=== PATIENT | male | born 1960 | race Caucasian/White ===

== ENCOUNTER 2017-10-07 06:50 | Emergency (ER) | payer SELFPAY ==
[~2017-10-07 06:50] MED LIST: FAMO20 PO; PRED10PA PO
[2017-10-07 06:57] VITALS: BP 190/97; PULSE 80; RESP 20; TEMP 98.8; O2SAT 88
[2017-10-07] MEDS ORDERED: methylPREDNISolone SOD SUCC 125 MG/2 ML VIAL IV PUSH ONE (07:15)
[2017-10-07] MEDS ORDERED: SODIUM CHLORIDE 0.9% FLUSH 10 ML FLUSH IVF PRN (07:15)
--- NOTE | 2017-10-07 07:18 | PD ---
HPI Chief Complaint: Respiratory Symptoms Time Seen by Provider: 07:08 Travel History International Travel<30 days: No Contact w/Intl Traveler<30days: No Traveled to known affect area: No History of Present Illness HPI This patient complains of shortness of breath. Duration is gradual worsening over one week. Patient has smoked a pack a day for the last 40 years. He complains of runny nose and congestion and cough. He denies fever or chest pain. No alleviating factors. 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 Severity is moderate. Initial room air saturation is 88% PFSH Past Medical History COPD: Yes Diminished Hearing: No Respiratory: Yes Influenza Vaccination: No ?: Not Social History Alcohol Use: Yes (OCCASIONAL) Tobacco Use: Yes (1 PPD) Substance Use: No Allergies-Medications (Allergen,Severity, Reaction): Coded Allergies: diphenhydramine (Unverified Allergy, Severe, 10/07/17) Reported Meds & Prescriptions Reported Meds & Active Scripts Active Ventolin Hfa 18 GM Inh (Albuterol Sulfate) 90 Mcg/Act Aer 2 Puff INH Q4H PRN Prednisone 20 Mg Tab 40 Mg PO DAILY Take 40 mg (2 tablets) daily for 5 days Review of Systems General / Constitutional: No: Fever Eyes: No: Visual changes HENT: Positive: Rhinorrhea, Congestion, No: Headaches Cardiovascular: No: Chest Pain or Discomfort Respiratory: Positive: Cough, Shortness of Breath, Wheezing Gastrointestinal: No: Abdominal Pain Genitourinary: No: Dysuria Musculoskeletal: No: Pain Skin: No Rash Neurologic: No: Weakness Psychiatric: No: Depression Endocrine: No: Polydipsia Hematologic/Lymphatic: No: Easy Bruising Physical Exam Narrative GENERAL: Well-nourished, well-developed patient with shortness of breath . SKIN: Focused skin assessment reveals no rash and nodules. Skin is Warm and dry. HEAD: Atraumatic. Normocephalic. EYES: Pupils equal and round. No scleral icterus. No injection or drainage. ENT: No nasal bleeding or discharge. Mucous membranes pink and moist. NECK: Trachea midline. No JVD. CARDIOVASCULAR: Regular rate and rhythm. No murmur appreciated. RESPIRATORY: No accessory muscle use. Expiratory wheezing with diffuse rhonchi. Breath sounds equal bilaterally. GASTROINTESTINAL: Abdomen soft, non-tender, nondistended. Hepatic and splenic margins not palpable. MUSCULOSKELETAL: No obvious deformities. No clubbing. No cyanosis. No edema. NEUROLOGICAL: Awake and alert. No obvious cranial nerve deficits. Motor grossly within normal limits. Normal speech. PSYCHIATRIC: Appropriate mood and affect; insight and judgment normal. Data Data Last Documented VS Vital Signs Date Time Temp Pulse Resp B/P (MAP) Pulse Ox O2 Delivery O2 Flow Rate FiO2 10/07/17 08:52 70 18 144/94 (111) 95 Nasal Cannula 2.00 10/07/17 06:57 98.8 Orders Orders Complete Blood Count With Diff (10/07/17 07:13) Basic Metabolic Panel (Bmp) (10/07/17 07:13) Influenzae A/B Antigen (10/07/17 07:13) Iv Access Insert/Monitor (10/07/17 07:13) Ecg Monitoring (10/07/17 07:13) Oximetry (10/07/17 07:13) Oxygen Administration (10/07/17 07:13) Chest, Single Ap (10/07/17 07:13) Sodium Chloride 0.9% Flush (Ns Flush) (10/07/17 07:15) Methylprednisolone So Succ Inj (Solumedr (10/07/17 07:15) Albuterol-Ipratropium Neb (Duoneb Neb) (10/07/17 07:15) Labs Laboratory Tests Test 10/07/17 07:20 White Blood Count 6.8 TH/MM3 Red Blood Count 4.73 MIL/MM3 Hemoglobin 15.5 GM/DL Hematocrit 47.0 % Mean Corpuscular Volume 99.4 FL Mean Corpuscular Hemoglobin 32.8 PG Mean Corpuscular Hemoglobin Concent 33.0 % Red Cell Distribution Width 13.3 % Platelet Count 185 TH/MM3 Mean Platelet Volume 7.7 FL Neutrophils (%) (Auto) 62.5 % Lymphocytes (%) (Auto) 27.2 % Monocytes (%) (Auto) 7.1 % Eosinophils (%) (Auto) 2.6 % Basophils (%) (Auto) 0.6 % Neutrophils # (Auto) 4.3 TH/MM3 Lymphocytes # (Auto) 1.8 TH/MM3 Monocytes # (Auto) 0.5 TH/MM3 Eosinophils # (Auto) 0.2 TH/MM3 Basophils # (Auto) 0.0 TH/MM3 CBC Comment DIFF FINAL Differential Comment Blood Urea Nitrogen 5 MG/DL Creatinine 0.70 MG/DL Random Glucose 106 MG/DL Calcium Level 8.2 MG/DL Sodium Level 143 MEQ/L Potassium Level 3.8 MEQ/L Chloride Level 99 MEQ/L Carbon Dioxide Level 32.1 MEQ/L Anion Gap 12 MEQ/L Estimat Glomerular Filtration Rate 117 ML/MIN MDM Medical Decision Making Medical Screen Exam Complete: Yes Emergency Medical Condition: Yes Medical Record Reviewed: Yes Differential Diagnosis Differential diagnosis includes COPD, asthma, pneumonia, bronchitis, CHF Narrative Course I have reviewed the patient's electronic medical record. Patient is here in 2016 with dyspnea. IV placed I gave him a series of 3 nebulizer treatments and oxygen and IV steroids I reviewed his chest x-ray which is normal Extended cardiac monitoring reveals sinus rhythm without significant ectopy Patient is 95% on 2 L, was hypoxic on room air upon arrival CBC is normal Metabolic profile is normal Influenza swab is negative On reevaluation he is clinically much improved. Saturations are excellent on room air at this point I prescribed him an inhaler in 5 days of prednisone Most importantly needs to quit smoking Stable for outpatient follow-up Diagnosis Primary Impression: Bronchitis Additional Impression: COPD with acute exacerbation Additional Instructions: The patient was advised to follow up with their physician and return if they worsen. Quit smoking Med/Other Pt SpecificInfo: Prescription(s) given Scripts Albuterol 18 GM Inh (Ventolin Hfa 18 GM Inh) 90 Mcg/Act Aer 2 PUFF INH Q4H Y for SHORTNESS OF BREATH, #1 INHALER 0 Refills Prov: Jamshid Madera MD 10/07/17 Prednisone (Prednisone) 20 Mg Tab 40 MG PO DAILY, #10 TAB 0 Refills Take 40 mg (2 tablets) daily for 5 days Prov: Jamshid Madera MD 10/07/17 Disposition: 01 DISCHARGE HOME Condition: Stable Jamshid Madera MD Oct 07, 2017 07:18
[2017-10-07 07:24] VITALS: BP 165/90; PULSE 64; RESP 18; O2SAT 93
[2017-10-07] MEDS: RESP: ALBUTEROL 2.5 MG/IPRATROPIUM 0.5 MG NEB (SCH) INH ×2 (07:25→07:27)
[2017-10-07 07:31] LABS: AUTOMATED NEUTROPHIL # 4.3 TH/MM3 (1.8-7.7); BASOPHIL % 0.6 % (0.0-2.0); EOSINOPHIL # 0.2 TH/MM3 (0-0.4); EOSINOPHIL % 2.6 % (0.0-4.0); HEMO FLAGS DIFF FINAL; LYMPH % 27.2 % (9.0-44.0); LYMPHOCYTE # 1.8 TH/MM3 (1.0-4.8); MEAN CELL VOLUME 99.4 FL (80.0-100.0); MEAN CORPUSCULAR HEMOGLOBIN 32.8 PG (27.0-34.0); MONO % 7.1 % (0.0-8.0); NEUT % 62.5 % (16.0-70.0); PLATELET COUNT 185 TH/MM3 (150-450); RED BLOOD COUNT 4.73 MIL/MM3 (4.50-5.90); RED CELL DISTRIBUTION WIDTH 13.3 % (11.6-17.2); WHITE BLOOD COUNT 6.8 TH/MM3 (4.0-11.0)
[2017-10-07 07:42] LABS: POTASSIUM 3.8 MEQ/L (3.5-5.1)
[2017-10-07 08:52] VITALS: BP 144/94; PULSE 70; RESP 18; O2SAT 95
--- NOTE | 2017-10-07 09:03 | RADRPT ---
EXAM DATE/TIME: 10/07/2017 07:23 [facility] COMPARISON: CHEST SINGLE AP, March 09, 2014, 11:57. INDICATIONS : Short of breath, cough, congestion, runny nose. MEDICAL HISTORY : Chronic obstructive pulmonary disease. Smoker. SURGICAL HISTORY : Right knee arthroscopy. ENCOUNTER: Initial ACUITY: 4 - 6 days PAIN SCORE: 0/10 LOCATION: chest FINDINGS: Portable AP view of the chest demonstrates a normal-sized cardiac silhouette. No effusion, consolidat ion, or pneumothorax is visualized. The bones and soft tissues demonstrate no acute abnormality. CONCLUSION: No acute cardiopulmonary abnormality is identified. Woody Lee MD on October 07, 2017 at 9:01 Board Certified Radiologist. This report was verified electronically.
[2017-10-07 09:18] LABS: BICARBONATE 32.1 MEQ/L (21.0-32.0)
[2017-10-07] MEDS ORDERED: VENTAER INH (09:23)
[2017-10-07] MEDS ORDERED: PRED20 PO (09:23)
== END 2017-10-07 09:34 | disposition home or self-care (01) ==
LOC: PHED 06:50
DX: J44.1 Chronic obstructive pulmonary disease with (acute) exacerbation (principal); F17.210 Nicotine dependence, cigarettes, uncomplicated
CPT/HCPCS: 71010; 80048; 85025; 87804; 94640; 94664; 96374; 99284; J2930

== ENCOUNTER 2018-02-28 08:26 | Emergency (ER) | payer SELFPAY ==
[~2018-02-28] VITALS: Ht 167.6 cm; Wt 99.2 kg
[~2018-02-28 08:26] MED LIST changes: -FAMO20 PO; -PRED10PA PO; +PRED20 PO; +VENTAER INH
[2018-02-28 08:32] VITALS: BP 191/100; PULSE 78; RESP 16; TEMP 98.3; O2SAT 92
--- NOTE | 2018-02-28 08:57 | PD ---
HPI Chief Complaint: Edema Time Seen by Provider: 08:50 Travel History International Travel<30 days: No Contact w/Intl Traveler<30days: No Traveled to known affect area: No History of Present Illness HPI 58-year-old male is complaining of swelling and redness of his left leg for the past week. There is no history of trauma. He has no history of DVT. He has not had fever or chills. The swelling is developed gradually. His only medication is an inhaler that he uses for COPD. He does smoke cigarettes. He is having some pain in the leg which is aggravated by walking. The pain is moderate PFSH Past Medical History COPD: Yes Diminished Hearing: No Respiratory: Yes Influenza Vaccination: No ?: Not Past Surgical History Oral Surgery: Yes (dental implants) Social History Alcohol Use: Yes (OCCASIONAL) Tobacco Use: Yes (1 PPD) Substance Use: Yes (occ pot) Allergies-Medications (Allergen,Severity, Reaction): Coded Allergies: diphenhydramine (Unverified Allergy, Severe, 10/07/17) Reported Meds & Prescriptions Reported Meds & Active Scripts Active Ventolin Hfa 18 GM Inh (Albuterol Sulfate) 90 Mcg/Act Aer 2 Puff INH Q4H PRN Review of Systems General / Constitutional: No: Fever, Chills Eyes: No: Diploplia, Blurred Vision HENT: No: Headaches, Vertigo Cardiovascular: No: Chest Pain or Discomfort, Palpitations Respiratory: Positive: Cough, Shortness of Breath Gastrointestinal: No: Nausea, Vomiting Genitourinary: No: Urgency, Frequency Musculoskeletal: Positive: Myalgias, Edema Skin: Positive Rash Neurologic: No: Weakness, Dizziness Physical Exam Narrative GENERAL: Well-developed male SKIN: Focused skin assessment warm/dry. HEAD: Atraumatic. Normocephalic. EYES: Pupils equal and round. No scleral icterus. No injection or drainage. ENT: No nasal bleeding or discharge. Mucous membranes pink and moist. NECK: Trachea midline. No JVD. CARDIOVASCULAR: Regular rate and rhythm. No murmur appreciated. RESPIRATORY: No accessory muscle use. There are bilateral rhonchi. Breath sounds equal bilaterally. GASTROINTESTINAL: Abdomen soft, non-tender, nondistended. Hepatic and splenic margins not palpable. MUSCULOSKELETAL: No obvious deformities. No clubbing. No cyanosis. Mild edema of the anterior borges of the right leg. The left leg the erythema is more diffuse and present from the knee down. There is some pitting edema of the leg NEUROLOGICAL: Awake and alert. No obvious cranial nerve deficits. Motor grossly within normal limits. Normal speech. PSYCHIATRIC: Appropriate mood and affect; insight and judgment normal. Data Data Last Documented VS Vital Signs Date Time Temp Pulse Resp B/P (MAP) Pulse Ox O2 Delivery O2 Flow Rate FiO2 02/28/18 09:58 69 18 169/108 (128) 92 Room Air 02/28/18 08:32 98.3 Orders Orders Complete Blood Count With Diff (02/28/18 08:53) Basic Metabolic Panel (Bmp) (02/28/18 08:53) Blood Culture (02/28/18 08:53) Us Leg Venous Doppler (02/28/18 08:58) Clonidine (Catapres) (02/28/18 10:00) Labs Laboratory Tests Test 02/28/18 09:00 White Blood Count 6.3 TH/MM3 Red Blood Count 5.34 MIL/MM3 Hemoglobin 16.0 GM/DL Hematocrit 49.5 % Mean Corpuscular Volume 92.7 FL Mean Corpuscular Hemoglobin 30.0 PG Mean Corpuscular Hemoglobin Concent 32.4 % Red Cell Distribution Width 14.5 % Platelet Count 167 TH/MM3 Mean Platelet Volume 8.0 FL Neutrophils (%) (Auto) 64.0 % Lymphocytes (%) (Auto) 22.7 % Monocytes (%) (Auto) 10.6 % Eosinophils (%) (Auto) 1.4 % Basophils (%) (Auto) 1.3 % Neutrophils # (Auto) 4.0 TH/MM3 Lymphocytes # (Auto) 1.4 TH/MM3 Monocytes # (Auto) 0.7 TH/MM3 Eosinophils # (Auto) 0.1 TH/MM3 Basophils # (Auto) 0.1 TH/MM3 CBC Comment DIFF FINAL Differential Comment Blood Urea Nitrogen 8 MG/DL Creatinine 0.73 MG/DL Random Glucose 124 MG/DL Calcium Level 8.5 MG/DL Sodium Level 142 MEQ/L Potassium Level 4.3 MEQ/L Chloride Level 104 MEQ/L Carbon Dioxide Level 34.3 MEQ/L Anion Gap 4 MEQ/L Estimat Glomerular Filtration Rate 111 ML/MIN MDM Medical Decision Making Medical Screen Exam Complete: Yes Emergency Medical Condition: Yes Medical Record Reviewed: Yes Differential Diagnosis Differential includes DVT, cellulitis Narrative Course Ultrasound of the leg is negative for clot. White count is 6.9. He will be treated with oral antibiotics. Blood pressure has been elevated on repeated readings. He has not had it checked in many years. He will be started on lisinopril also Diagnosis Primary Impression: Cellulitis of left leg Additional Impression: Hypertension Referrals: [facility] Scripts Lisinopril (Lisinopril) 20 Mg Tab 20 MG PO DAILY, #30 TAB 0 Refills Prov: Michael Hoyt MD 02/28/18 Sulfamethoxazole-Trimethoprim (Bactrim DS) 800-160 Mg Tab 1 TAB PO BID for Infection, #14 TAB 0 Refills Prov: Michael Hoyt MD 02/28/18 Cephalexin (Keflex) 500 Mg Capsule 500 MG PO Q6H for Infection for 7 Days, #28 CAP 0 Refills Prov: Michael Hoyt MD 02/28/18 Disposition: 01 DISCHARGE HOME Condition: Stable Michael Hoyt MD Feb 28, 2018 08:57
[2018-02-28 09:44] LABS: BASOPHIL # 0.1 TH/MM3 (0-0.2); BASOPHIL % 1.3 % (0.0-2.0); EOSINOPHIL # 0.1 TH/MM3 (0-0.4); EOSINOPHIL % 1.4 % (0.0-4.0); HEMATOCRIT 49.5 % (39.0-51.0); LYMPH % 22.7 % (9.0-44.0); LYMPHOCYTE # 1.4 TH/MM3 (1.0-4.8); MEAN CELL VOLUME 92.7 FL (80.0-100.0); MEAN CORPUSCULAR HGB CONC 32.4 % (32.0-36.0); MONO % 10.6 % (0.0-8.0); MONOCYTE # 0.7 TH/MM3 (0-0.9); PLATELET COUNT 167 TH/MM3 (150-450); RED BLOOD COUNT 5.34 MIL/MM3 (4.50-5.90); RED CELL DISTRIBUTION WIDTH 14.5 % (11.6-17.2); WHITE BLOOD COUNT 6.3 TH/MM3 (4.0-11.0)
[2018-02-28 09:45] VITALS: BP_SYST 179; BP_SYST 186; BP_DIAS 106; BP_DIAS 92; PULSE 68; RESP 18; O2SAT 93
[2018-02-28 09:55] LABS: CALCIUM 8.5 MG/DL (8.5-10.1)
[2018-02-28 09:56] LABS: BICARBONATE 34.3 MEQ/L (21.0-32.0)
[2018-02-28 09:58] VITALS: BP 169/108; PULSE 69; RESP 18; O2SAT 92
[2018-02-28 09:59] LABS: CREATININE 0.73 MG/DL (0.60-1.30)
--- NOTE | 2018-02-28 09:59 | RADRPT ---
EXAM DATE/TIME: 02/28/2018 09:44 [facility] COMPARISON: No previous studies available for comparison. INDICATIONS : Left leg swelling and redness. MEDICAL HISTORY : Chronic obstructive pulmonary disease. SURGICAL HISTORY : Ruight knee arthroscopy. ENCOUNTER: Initial ACUITY: 1 week PAIN SCORE: 6/10 LOCATION: Left leg. TECHNIQUE: Venous ultrasound of the leg was performed from the inguinal ligament to the proximal calf. Real-mayelin e, color Doppler and spectral tracing, compression and augmentation techniques were used. FINDINGS: There is normal compressibility of the deep venous system from the inguinal region to the proximal ca lf. No echogenic clot is seen in the lumen of the common femoral, femoral, popliteal, and posterior tibial veins. There is a normal response of the venous system to proximal and distal augmentation an d respiration. CONCLUSION: Negative for deep venous thrombosis. Ran Parrish MD on February 28, 2018 at 9:56 Board Certified Radiologist. This report was verified electronically.
[2018-02-28] MEDS ORDERED: cloNIDine HCL 0.1 MG TAB PO ONE (10:00)
[2018-02-28] MEDS ORDERED: BACT800T5 PO (10:17)
[2018-02-28] MEDS ORDERED: CEPH-460 PO (10:17)
[2018-02-28] MEDS ORDERED: LISI-515 PO (10:17)
[2018-02-28 10:36] VITALS: BP 176/100
== END 2018-02-28 10:38 | disposition home or self-care (01) ==
LOC: PHED 08:26
DX: L03.116 Cellulitis of left lower limb (principal); J44.9 Chronic obstructive pulmonary disease, unspecified; I10 Essential (primary) hypertension; F17.210 Nicotine dependence, cigarettes, uncomplicated; F12.90 Cannabis use, unspecified, uncomplicated
CPT/HCPCS: 80048; 85025; 87040; 93971

== ENCOUNTER 2018-04-03 18:03 | Inpatient (IN) | payer SELFPAY ==
[~2018-04-03] VITALS: Ht 167.6 cm; Wt 93.7 kg
[~2018-04-03 18:03] MED LIST changes: +BACT800T5 PO; +CEPH-460 PO; +LISI-515 PO; -PRED20 PO
[2018-04-03 18:18] VITALS: BP 155/95; PULSE 75; RESP 16; TEMP 99; O2SAT 87
[2018-04-03] MEDS ORDERED: SODIUM CHLORIDE 0.9% FLUSH 10 ML FLUSH IVF PRN (19:30)
[2018-04-03] MEDS ORDERED: RESP: ALBUTEROL 2.5 MG/IPRATROPIUM 0.5 MG NEB (SCH) INH ONE (19:30)
[2018-04-03 19:36] VITALS: O2SAT 95
[2018-04-03 19:50] VITALS: BP_SYST 177; BP_SYST 183; BP_DIAS 101; BP_DIAS 97; PULSE 68; RESP 20; TEMP 98.5; O2SAT 91
[2018-04-03 19:52] LABS: AUTOMATED NEUTROPHIL # 3.9 TH/MM3 (1.8-7.7); BASOPHIL # 0.1 TH/MM3 (0-0.2); BASOPHIL % 1.4 % (0.0-2.0); EOSINOPHIL # 0.1 TH/MM3 (0-0.4); HEMATOCRIT 50.6 % (39.0-51.0); HEMOGLOBIN 16.7 GM/DL (13.0-17.0); LYMPH % 25.9 % (9.0-44.0); LYMPHOCYTE # 1.7 TH/MM3 (1.0-4.8); MEAN CELL VOLUME 91.6 FL (80.0-100.0); MEAN CORPUSCULAR HEMOGLOBIN 30.3 PG (27.0-34.0); MEAN PLATELET VOLUME 7.7 FL (7.0-11.0); MONO % 9.4 % (0.0-8.0); MONOCYTE # 0.6 TH/MM3 (0-0.9); NEUT % 61.3 % (16.0-70.0); PLATELET COUNT 151 TH/MM3 (150-450); RED BLOOD COUNT 5.53 MIL/MM3 (4.50-5.90); RED CELL DISTRIBUTION WIDTH 15.5 % (11.6-17.2); WHITE BLOOD COUNT 6.4 TH/MM3 (4.0-11.0)
--- NOTE | 2018-04-03 20:00 | PD ---
HPI Chief Complaint: Musculoskeletal Complaint Time Seen by Provider: 19:04 Travel History International Travel<30 days: No Contact w/Intl Traveler<30days: No Traveled to known affect area: No History of Present Illness HPI 58-year-old male presents to the emergency department for complaint of increasing progressive redness swelling and warmth to the left lower extremity. Patient was seen 1 month ago, 02/28/18, for same complaint although symptoms have worsened. Patient has completed course of antibiotic without symptomatic relief. Patient states due to persistence of symptoms and worsening of symptoms decided to return at this time for reevaluation. Patient rates leg pain 9/10 in intensity. Patient denies any known injury. Patient's had no chest pain no pleuritic chest pain and no shortness of breath. Patient also denies any hemoptysis. Patient does have history of COPD but has not needed to use her rescue inhaler and does not complain of any difficulty with breathing or wheezing at this time. Patient's had no fever no chills. Patient denies history of DVT. Patient was evaluated 1 month ago placed on antibiotic after ultrasound of the left lower extremity was negative for DVT. Patient has not followed up with his primary care provider. [facility] Past Medical History Narrative Medical COPD, dental surgery; tobacco use alcohol use marijuana use; nursing notes reviewed COPD: Yes Diminished Hearing: No Respiratory: Yes Tetanus Vaccination: < 5 Years Influenza Vaccination: No Past Surgical History Oral Surgery: Yes (dental implants) Social History Alcohol Use: Yes (OCCASIONAL) Tobacco Use: Yes (1 PPD) Substance Use: Yes (occ pot) Allergies-Medications (Allergen,Severity, Reaction): Coded Allergies: diphenhydramine (Unverified Allergy, Severe, 04/03/18) Reported Meds & Prescriptions Reported Meds & Active Scripts Active Lisinopril 20 Mg Tab 20 Mg PO DAILY Review of Systems Except as stated in HPI: all other systems reviewed are Neg General / Constitutional: No: Fever, Chills HENT: No: Congestion Cardiovascular: Positive: Edema (LLE), No: Chest Pain or Discomfort, Dyspnea on exertion Respiratory: No: Cough, Shortness of Breath, Wheezing, Orthopnea, Hemoptysis, Pleuritic Pain Gastrointestinal: No: Nausea, Vomiting, Abdominal Pain Genitourinary: No: Dysuria, Flank Pain Musculoskeletal: Positive: Limited ROM (LLE), Edema (LLE), Pain (LLE) Skin: Positive Rash (erythema LLE) Neurologic: No: Weakness, Dizziness, Syncope Psychiatric: No: Anxiety Hematologic/Lymphatic: No: Easy Bruising Physical Exam Narrative GENERAL: Well-developed well-nourished male no acute distress no respiratory distress SKIN: Warm and dry. HEAD: Normocephalic. EYES: No scleral icterus. No injection or drainage. NECK: Supple, trachea midline. No JVD or lymphadenopathy. CARDIOVASCULAR: Regular rate and rhythm without murmurs, gallops, or rubs. RESPIRATORY: Breath sounds equal bilaterally diminished breath sounds are rare end expiratory wheeze. No accessory muscle use. GASTROINTESTINAL: Abdomen soft, non-tender, nondistended. MUSCULOSKELETAL: No cyanosis, LLE erythema increased warmth tenderness and edema. Bilateral dorsalis pedis pulses 2+ to palpation. Negative Larry's BACK: Nontender without obvious deformity. No CVA tenderness. Data Data Last Documented VS Vital Signs Date Time Temp Pulse Resp B/P (MAP) Pulse Ox O2 Delivery O2 Flow Rate FiO2 04/04/18 02:02 84 Nasal Cannula 3.00 04/03/18 21:34 79 20 166/90 (115) 04/03/18 19:50 98.5 Orders Orders Complete Blood Count With Diff (04/03/18 19:19) Basic Metabolic Panel (Bmp) (04/03/18 19:19) Act Partial Throm Time (Ptt) (04/03/18 19:19) Prothrombin Time / Inr (Pt) (04/03/18 19:19) Magnesium (Mg) (04/03/18 19:19) Iv Access Insert/Monitor (04/03/18 19:19) Ecg Monitoring (04/03/18 19:19) Oximetry (04/03/18 19:19) Oxygen Administration (04/03/18 19:19) Chest, Single Ap (04/03/18 19:19) Us Leg Venous Doppler (04/03/18 19:19) Sodium Chloride 0.9% Flush (Ns Flush) (04/03/18 19:30) Albuterol-Ipratropium Neb (Duoneb Neb) (04/03/18 19:30) Lactic Acid (04/03/18 19:19) B-Type Natriuretic Peptide (04/03/18 20:24) Albuterol-Ipratropium Neb (Duoneb Neb) (04/03/18 20:30) Clonidine (Catapres) (04/03/18 20:30) Methylprednisolone So Succ Inj (Solumedr (04/03/18 20:30) Clindamycin 900 Mg/Ns Premix (Cleocin 90 (04/03/18 23:45) Ct Pulmonary Angiogram (04/04/18 ) Albuterol-Ipratropium Neb (Duoneb Neb) (04/04/18 02:15) Piperacil-Tazo 4.5 Gm Premix (Zosyn 4.5 (04/04/18 02:15) Azithromycin Inj (Zithromax Inj) (04/04/18 02:15) Blood Culture (04/04/18 02:02) Admit Order (Ed Use Only) (04/04/18 ) Social Media Sr Strategy Manager / Telemetry [email or web address] (04/04/18 02:08) Diet Heart Healthy (04/04/18 Breakfast) Activity Oob With Assistance (04/04/18 02:08) Labs Laboratory Tests Test 04/03/18 19:45 White Blood Count 6.4 TH/MM3 Red Blood Count 5.53 MIL/MM3 Hemoglobin 16.7 GM/DL Hematocrit 50.6 % Mean Corpuscular Volume 91.6 FL Mean Corpuscular Hemoglobin 30.3 PG Mean Corpuscular Hemoglobin Concent 33.0 % Red Cell Distribution Width 15.5 % Platelet Count 151 TH/MM3 Mean Platelet Volume 7.7 FL Neutrophils (%) (Auto) 61.3 % Lymphocytes (%) (Auto) 25.9 % Monocytes (%) (Auto) 9.4 % Eosinophils (%) (Auto) 2.0 % Basophils (%) (Auto) 1.4 % Neutrophils # (Auto) 3.9 TH/MM3 Lymphocytes # (Auto) 1.7 TH/MM3 Monocytes # (Auto) 0.6 TH/MM3 Eosinophils # (Auto) 0.1 TH/MM3 Basophils # (Auto) 0.1 TH/MM3 CBC Comment DIFF FINAL Differential Comment Prothrombin Time 12.3 SEC Prothromb Time International Ratio 1.2 RATIO Activated Partial Thromboplast Time 28.6 SEC Blood Urea Nitrogen 8 MG/DL Creatinine 0.70 MG/DL Random Glucose 87 MG/DL Calcium Level 8.5 MG/DL Magnesium Level 2.2 MG/DL Sodium Level 139 MEQ/L Potassium Level 4.4 MEQ/L Chloride Level 100 MEQ/L Carbon Dioxide Level 37.5 MEQ/L Anion Gap 2 MEQ/L Estimat Glomerular Filtration Rate 117 ML/MIN Lactic Acid Level 0.7 mmol/L B-Type Natriuretic Peptide 197 PG/ML MDM Medical Decision Making Medical Screen Exam Complete: Yes Emergency Medical Condition: Yes Medical Record Reviewed: Yes Interpretation(s) Last Impressions CT Angiography 04/04/18 0000 Signed Impressions: CONCLUSION: 1. No evidence of pulmonary embolism. 2. Moderate left pleural effusion with compressive atelectasis of the left low er lung. 3. Parenchymal infiltrate in the left upper lung. 4. Atelectasis in the right lower lung. Lower Extremity Ultrasound 04/03/181918 Signed Impressions: CONCLUSION: 1. No evidence of deep venous thrombosis within the left lower extremity. Chest X-Ray 04/03/181918 Signed Impressions: CONCLUSION: 1. Patchy opacity within left lung base consistent with possible pneumonia. 2. Small left pleural effusion. 3. Cardiomegaly. 4. Degenerative changes and scoliosis of the thoracic spine. CBC & BMP Diagram 04/03/18 19:45 Calcium Level 8.5, Magnesium Level 2.2 Vital Signs Date Time Temp Pulse Resp B/P (MAP) Pulse Ox O2 Delivery O2 Flow Rate FiO2 04/04/18 02:02 84 Nasal Cannula 3.00 04/03/18 21:34 79 20 166/90 (115) 92 Nasal Cannula 2.00 04/03/18 20:21 20 04/03/18 19:50 98.5 68 20 177/97 (123) 91 Nasal Cannula 2.00 183/101 (128) 04/03/18 19:50 90 Nasal Cannula 2.00 04/03/18 19:36 95 Nasal Cannula 2.00 04/03/18 18:18 99.0 75 16 155/95 (115) 87 Differential Diagnosis DVT, PE, exacerbation COPD, cellulitis, lymphedema, erysipelas, venous insufficiency, failed outpatient therapy; no findings for necrotizing fasciitis Narrative Course Patient placed on auto wash buffer with continuous pulse oximetry was noted to have low O2 saturations placed on 2 L/min nasal cannula administer DuLita updraft; ultrasound of the lower extremity ordered as well as CT pulmonary angiogram Labs resulted CBC with automated differential within normal limits lactic acid is not elevated Ultrasound is negative for DVT Patient given additional DuoNeb updraft treatments due to O2 saturation off of supplemental oxygen Patient ordered antibiotic therapy CT pulmonary angiogram is reordered Patient waiting for imaging study 1130 CT pulmonary angiogram pending at 2:[address] pulmonary angiogram probably resulted and no pulmonary embolism however moderate compressive pleural effusion with infiltrate; this is shared with the patient and he is agreeable to admission call placed to medicine service for patient with COPD with hypoxemia moderate pleural effusion with infiltrate the cultures will be obtained patient will be given Zosyn and azithromycin has not received a one-time dose of clindamycin. Critical Care Narrative Aggregate critical care time was 35 minutes. Time to perform other separately billable procedures was not included in the critical care time. My time did not include minutes spent treating any other patients simultaneously or on activities that did not directly contribute to the patient's treatment. The services I provided to this patient were to treat and/or prevent clinically significant deterioration that could result in: Respiratory failure, sepsis, I provided critical care services requiring my management, as noted below: Chart data review, documentation time, medication orders and management, vital sign assessments/reviewing monitor data, ordering and reviewing lab tests, ordering and interpreting/reviewing x-rays and diagnostic studies, care of the patient and discussion of the patient with the admitting physician. Physician Communication Physician Communication discussed with DR Bauer Diagnosis Primary Impression: COPD with exacerbation Additional Impressions: Cellulitis Qualified Codes: L03.116 - Cellulitis of left lower limb Pneumonia Qualified Codes: J18.1 - Lobar pneumonia, unspecified organism Pleural effusion on left Hypoxia Hypoxemia Admitting Information Admitting Physician Requests: Admit Med/Other Pt SpecificInfo: Prescription(s) given Disposition: 01 DISCHARGE HOME Condition: Stable Hollie Lopez MD Apr 03, 2018 20:00
[2018-04-03 20:03] LABS: BICARBONATE 37.5 MEQ/L (21.0-32.0); CALCIUM 8.5 MG/DL (8.5-10.1); MAGNESIUM 2.2 MG/DL (1.5-2.5)
--- NOTE | 2018-04-03 20:05 | RADRPT ---
EXAM DATE: 04/03/2018 8:02 PM EDT AGE/SEX: 58 years / Male INDICATIONS: Left leg pain and redness. CLINICAL DATA: This is the patient's subsequent encounter. Patient reports that signs and symptoms h ave been present for 1 month and indicates a pain score of 8/10. MEDICAL/SURGICAL HISTORY: Chronic obstructive pulmonary disease. . Right knee arthroscopy. COMPARISON: [facility], US LEG LEFT VENOUS DOPPLER, 02/28/2018. . TECHNIQUE: Venous ultrasound of both lower extremities was performed from the inguinal ligament to t he proximal calf. Real-time, color Doppler and spectral tracing, compression and augmentation techni ques were used. FINDINGS: There is normal compressibility of the deep venous system from the inguinal region to the proximal ca lf. No echogenic clot is seen in the lumen of the common femoral, femoral, popliteal, and posterior tibial veins. There is a normal response of the venous system to proximal and distal augmentation an d respiration. CONCLUSION: 1. No evidence of deep venous thrombosis within the left lower extremity. Electronically signed by: Roldan Ambrosio MD 04/03/2018 8:03 PM EDT
[2018-04-03 20:06] LABS: INTERNATIONAL NORMALIZED RATIO 1.2 RATIO; PROTHROMBIN TIME - PATIENT 12.3 SEC (9.8-11.6)
[2018-04-03 20:07] LABS: CREATININE 0.7 MG/DL (0.60-1.30)
[2018-04-03] MEDS ORDERED: cloNIDine HCL 0.1 MG TAB PO ONE (20:30)
[2018-04-03] MEDS ORDERED: methylPREDNISolone SOD SUCC 125 MG/2 ML VIAL IV PUSH ONE (20:30)
[2018-04-03] MEDS: RESP: ALBUTEROL 2.5 MG/IPRATROPIUM 0.5 MG NEB (SCH) INH ×2 (20:36→20:46)
--- NOTE | 2018-04-03 21:20 | RADRPT ---
EXAM DATE: 04/03/2018 9:09 PM EDT AGE/SEX: 58 years / Male INDICATIONS: Short of breath. CLINICAL DATA: This is the patient's initial encounter. Patient reports that signs and symptoms have been present for 1 day and indicates a pain score of 2/10. MEDICAL/SURGICAL HISTORY: None. None. COMPARISON: [facility], CHEST SINGLE AP, 10/07/2017. . FINDINGS: Patchy opacity is noted within the left lung base. There is also a small left pleural effusion. The h eart is enlarged. The right lung is clear. Degenerative changes and scoliosis of the thoracic spine a re noted. CONCLUSION: 1. Patchy opacity within left lung base consistent with possible pneumonia. 2. Small left pleural effusion. 3. Cardiomegaly. 4. Degenerative changes and scoliosis of the thoracic spine. Electronically signed by: Roldan Ambrosio MD 04/03/2018 9:19 PM EDT
[2018-04-03 21:34] VITALS: BP 166/90; PULSE 79; RESP 20; O2SAT 92
[2018-04-03 22:39] VITALS: BP 156/91; PULSE 82; RESP 18; O2SAT 86
[2018-04-03 23:39] VITALS: BP 153/86; PULSE 84; RESP 18; O2SAT 91
[2018-04-03] MEDS ORDERED: CLINDAMYCIN 900 MG/NS PREMIX 50 ML IV ONE (23:45)
[2018-04-04] VITALS (26 sets, daily range): BP systolic 112–185; BP diastolic 66–97; PULSE 70–94; RESP 14–28; TEMP 96.8–98.7; O2SAT 86–98
[2018-04-04] MEDS ORDERED: IOHEXOL 350 MG/ML 10 ML VIAL (for RAD DIAG) IVCONTRAST ONE (01:19)
--- NOTE | 2018-04-04 01:56 | RADRPT ---
EXAM DATE: 04/04/2018 1:48 AM EDT AGE/SEX: 58 years / Male INDICATIONS: Shortness of breath. Left leg pain. CLINICAL DATA: This is the patient's initial encounter. Patient reports that signs and symptoms have been present for 1 month and indicates a pain score of 9/10. MEDICAL/SURGICAL HISTORY: Chronic obstructive pulmonary disease. None. RADIATION DOSE: 19.18 CTDI (mGy) COMPARISON: No prior [facility] exams available for comparison. TECHNIQUE: Volumetric scanning was performed using a multi-row detector CT scanner during bolus infu joleen of 75 ml Omnipaque 350 (iohexol) nonionic water-soluble contrast as a single exam dose. The beverly a was post processed with a variety of visualization algorithms including full volume maximum intensi ty projection and sliding thin slab reformation. Using automated exposure control and adjustment of the mA and/or kV according to patient size, radiation dose was kept as low as reasonably achievable t o obtain optimal diagnostic quality images. FINDINGS: Pulmonary Arteries: No filling defects are seen in the pulmonary arteries out to the subsegmental ve ssels. The left and right pulmonary arteries are normal in diameter. Lung: There are some infiltrates in the left upper lung with compressive atelectasis in the left low er lung from a left sided pleural effusion. There is right lower lung atelectasis. The rest the right lung is well aerated. Effusion: Moderate left-sided pleural effusion. Mediastinum: No evidence of mediastinal or hilar adenopathy. Moderate cardiomegaly. Other: The axilla is unremarkable. CONCLUSION: 1. No evidence of pulmonary embolism. 2. Moderate left pleural effusion with compressive atelectasis of the left lower lung. 3. Parenchymal infiltrate in the left upper lung. 4. Atelectasis in the right lower lung. Electronically signed by: Samuel Pena MD 04/04/2018 1:55 AM EDT
[2018-04-04] MEDS ORDERED: SENNOSIDES 8.6 MG TAB PO PRN (02:15)
[2018-04-04] MEDS ORDERED: RESP: ALBUTEROL 2.5 MG/IPRATROPIUM 0.5 MG NEB (SCH) NEB ONE (02:15)
[2018-04-04] MEDS ORDERED: ACETAMINOPHEN/HYDROcodone 325 MG/5 MG TAB PO PRN (02:15)
[2018-04-04] MEDS ORDERED: AZITHROMYCIN INJ 500 MG in SODIUM CHLOR 0.9% 250 ML INJ 250 ML IV ONE (02:15)
[2018-04-04] MEDS ORDERED: SODIUM CHLORIDE 0.9% FLUSH 10 ML FLUSH IV FLUSH PRN (02:15)
[2018-04-04] MEDS ORDERED: RESP: ALBUTEROL 2.5 MG/IPRATROPIUM 0.5 MG NEB (PRN) NEB ×2 (02:15→11:45)
[2018-04-04] MEDS ORDERED: ACETAMINOPHEN 325 MG TAB PO PRN (02:15)
[2018-04-04] MEDS ORDERED: MAGNESIUM HYDROXIDE SUSP 30 ML CUP PO PRN (02:15)
[2018-04-04] MEDS ORDERED: BISACODYL 10 MG SUPP RECTAL PRN (02:15)
[2018-04-04] MEDS ORDERED: METOCLOPRAMIDE HCL 10 MG/2 ML VIAL IV PUSH PRN (02:15)
[2018-04-04] MEDS ORDERED: LACTULOSE SYRUP 20 GM/30 ML CUP PO PRN (02:15)
[2018-04-04] MEDS ORDERED: PIPERACIL-TAZO 4.5 GM PREMIX 100 ML IV ONE (02:15)
[2018-04-04] MEDS: ACETAMINOPHEN/HYDROcodone 325 MG/10 MG TAB PO PRN ×2 (02:49→10:07)
--- NOTE | 2018-04-04 08:38 | HHI.HP ---
[facility] No Primary Care Physician Admission Diagnosis Pneumonia w/ moderate effusion; COPD; LLE cellulitis Diagnoses: (1) Pneumonia (2) COPD with exacerbation (3) Hypoxia (4) Pleural effusion on left (5) Cellulitis Chief Complaint: Shortness of breath Left lower extremity redness, swelling and warmth Travel History International Travel<30 Days: No Contact w/Intl Traveler <30 Da: No Traveled to Known Affected Are: No History of Present Illness This is a pleasant 58-year-old male patient with a known medical history of COPD , tobacco abuse as well as new diagnosis of hypertension who presented to the ED with complaints of worsening shortness of breath as well as left lower extremity swelling, redness and warmth. Patient states he presented to the ED on 02/28/18 for left lower extremity complaints. At that time patient was given Bactrim and Keflex. Patient states he completed this course of antibiotics roughly 4 days ago with no improvement but actually worsening pain and erythema to his left lower. Patient states that the pain in his leg is localized, worse with activity or movement. Rated a 9 out of 10 at its worst on pain scale. Does admit to history of COPD, does not follow with the health care analyst, prescribed a home inhaler, with unknown name, which he has not been using. Patient does admit to increasing shortness of breath especially with exertion. States that while he was in the ED last month he was prescribed lisinopril for the first time for new diagnosis of hypertension. Patient states that since this time he has developed a nonproductive cough. Denies any recent fevers, chills, headache, abdominal pain, nausea, vomiting, diarrhea or dysuria. Does not follow with the PCP. Due to his diagnosis of pneumonia with shortness of breath and cough, it is questionable whether the cough is secondary to ERICA inhibitor use. Review of Systems Constitutional: DENIES: Fatigue, Fever, Chills Respiratory: COMPLAINS OF: Cough, Shortness of breath, DENIES: Sputum production Cardiovascular: DENIES: Chest pain, Palpitations Gastrointestinal: DENIES: Abdominal pain, Black stools, Bloody stools, Constipation, Diarrhea, Nausea, Vomiting Musculoskeletal: DENIES: Joint pain Hematologic/lymphatic: DENIES: Bruising Immunologic/allergic: DENIES: Eczema Neurologic: DENIES: Abnormal gait Psychiatric: DENIES: Anxiety Except as stated in HPI: all other systems reviewed are Neg Past Family Social History Past Medical History COPD Tobacco abuse Hypertension Past Surgical History Dental implants. Reported Medications Active Lisinopril 20 Mg Tab 20 Mg PO DAILY Allergies: Coded Allergies: diphenhydramine (Unverified Allergy, Severe, 04/03/18) Active Ordered Medications Current Medications Medications (Trade) Dose Ordered Sig/Diane Route Start Time Stop Time Status Last Admin (NS Flush) 2 ml UNSCH PRN IVF 04/03/18 19:30 Ceftriaxone Sodium 1000 mg/ Sodium Chloride 100 ml @ 200 mls/hr Q24H IV 04/04/18 23:00 Azithromycin 500 mg/Sodium Chloride 250 ml @ 250 mls/hr Q24H IV 04/04/18 23:00 (Duoneb Neb) 1 ampule Q4HR NEB PRN NEB 04/04/18 02:15 04/04/18 05:32 (Symbicort 160-4.5 Mcg Inh) 2 puff Q12HR INH 04/04/18 09:00 04/04/18 10:06 (Mucinex Er) 600 mg BID PO 04/04/18 09:00 04/04/18 10:06 (NS Flush) 2 ml UNSCH PRN IV FLUSH 04/04/18 02:15 (NS Flush) 2 ml BID IV FLUSH 04/04/18 09:00 04/04/18 10:06 (Reglan Inj) 5 mg Q6H PRN IV PUSH 04/04/18 02:15 (Heparin Inj) 5,000 units Q12H SQ 04/04/18 09:00 04/04/18 10:07 (Tylenol) 650 mg Q6H PRN PO 04/04/18 02:15 (Brierfield 5-325 Mg) 1 tab Q4H PRN PO 04/04/18 02:15 (Brierfield 10-325 Mg) 1 tab Q4H PRN PO 04/04/18 02:15 04/04/18 10:07 (Patricia-Colace) 1 tab BID PO 04/04/18 09:00 (Milk Of Magnesia Liq) 30 ml Q12H PRN PO 04/04/18 02:15 (Senokot) 17.2 mg Q12H PRN PO 04/04/18 02:15 (Dulcolax Supp) 10 mg DAILY PRN RECTAL 04/04/18 02:15 (Lactulose Liq) 30 ml DAILY PRN PO 04/04/18 02:15 (Pneumovax-23 Inj) 25 mcg ONCE ONCE IM 04/05/18 10:00 04/05/18 10:01 Family History Paternal medical history significant for cardiovascular disease at the age of 42. Maternal medical history also significant for cardiovascular disease, had an AR at the age of 60. Social History Smoking 1 pack per day of cigarettes 40 years. Denies any alcohol use. Does admit to daily marijuana use. Physical Exam Vital Signs Vital Signs Date Time Temp Pulse Resp B/P (MAP) Pulse Ox O2 Delivery O2 Flow Rate FiO2 04/04/18 08:00 98.7 94 19 185/88 (120) 95 04/04/18 05:33 93 Nasal Cannula 3.00 04/04/18 04:00 16 04/04/18 04:00 96.8 90 20 125/77 (93) 88 04/04/18 03:03 90 18 146/84 (104) 90 Nasal Cannula 3.00 04/04/18 02:30 78 20 163/95 (117) 90 Nasal Cannula 2.00 04/04/18 02:15 93 Nasal Cannula 3.00 04/04/18 02:02 84 Nasal Cannula 3.00 04/04/18 00:30 83 20 174/97 (122) 92 Nasal Cannula 2.00 04/03/18 23:39 84 18 153/86 (108) 91 Nasal Cannula 2.00 04/03/18 22:39 82 18 156/91 (112) 86 Nasal Cannula 2.00 04/03/18 21:34 79 20 166/90 (115) 92 Nasal Cannula 2.00 04/03/18 20:21 20 04/03/18 20:00 83 90 Nasal Cannula 2.00 04/03/18 19:50 98.5 68 20 177/97 (123) 91 Nasal Cannula 2.00 183/101 (128) 04/03/18 19:50 90 Nasal Cannula 2.00 04/03/18 19:36 95 Nasal Cannula 2.00 04/03/18 18:18 99.0 75 16 155/95 (115) 87 Physical Exam GENERAL: Well-developed, well-nourished patient, appears over stated age on supplemental O2. SKIN: Left lower extremity erythema, warmth and swelling. Pedal pulses present 2+. HEAD: Normocephalic. Atraumatic. EYES: Pupils equal and round. No scleral icterus. No injection or drainage. ENT: No nasal bleeding or discharge. Mucous membranes pink and moist. NECK: Supple. Trachea midline. CARDIOVASCULAR: Regular rate and rhythm. S1, S2 noted. No murmur appreciated. RESPIRATORY: No accessory muscle use. Rhonchi throughout lung arroyo. Breath sounds equal bilaterally. GASTROINTESTINAL: Abdomen soft, non-tender, nondistended. Round. Normoactive bowel sounds x4. MUSCULOSKELETAL: No obvious deformities. Extremities without clubbing, cyanosis. NEUROLOGICAL: Awake and alert. No obvious cranial nerve deficits. Motor grossly within normal limits. 5/5 muscle strength in bilateral upper and lower extremities. Normal speech. PSYCHIATRIC: Appropriate mood and affect; insight and judgment normal. Laboratory Laboratory Tests Test 04/03/18 19:45 White Blood Count 6.4 Red Blood Count 5.53 Hemoglobin 16.7 Hematocrit 50.6 Mean Corpuscular Volume 91.6 Mean Corpuscular Hemoglobin 30.3 Mean Corpuscular Hemoglobin Concent 33.0 Red Cell Distribution Width 15.5 Platelet Count 151 Mean Platelet Volume 7.7 Neutrophils (%) (Auto) 61.3 Lymphocytes (%) (Auto) 25.9 Monocytes (%) (Auto) 9.4 Eosinophils (%) (Auto) 2.0 Basophils (%) (Auto) 1.4 Neutrophils # (Auto) 3.9 Lymphocytes # (Auto) 1.7 Monocytes # (Auto) 0.6 Eosinophils # (Auto) 0.1 Basophils # (Auto) 0.1 CBC Comment DIFF FINAL Differential Comment Prothrombin Time 12.3 Prothromb Time International Ratio 1.2 Activated Partial Thromboplast Time 28.6 Blood Urea Nitrogen 8 Creatinine 0.70 Random Glucose 87 Calcium Level 8.5 Magnesium Level 2.2 Sodium Level 139 Potassium Level 4.4 Chloride Level 100 Carbon Dioxide Level 37.5 Anion Gap 2 Estimat Glomerular Filtration Rate 117 Lactic Acid Level 0.7 B-Type Natriuretic Peptide 197 Date/Time Source Procedure Growth Status 04/04/18 02:20 Blood Peripheral Aerobic Blood Culture Pending Received 04/04/18 02:20 Blood Peripheral Anaerobic Blood Culture Pending Received Result Diagram: 04/03/18194404/03/181944 Imaging Last Impressions CT Angiography 04/04/18 0000 Signed Impressions: CONCLUSION: 1. No evidence of pulmonary embolism. 2. Moderate left pleural effusion with compressive atelectasis of the left low er lung. 3. Parenchymal infiltrate in the left upper lung. 4. Atelectasis in the right lower lung. Lower Extremity Ultrasound 04/03/181918 Signed Impressions: CONCLUSION: 1. No evidence of deep venous thrombosis within the left lower extremity. Chest X-Ray 04/03/181918 Signed Impressions: CONCLUSION: 1. Patchy opacity within left lung base consistent with possible pneumonia. 2. Small left pleural effusion. 3. Cardiomegaly. 4. Degenerative changes and scoliosis of the thoracic spine. Septic Shock Reassessment Septic shock perfusion: reassessment completed Caprini VTE Risk Assessment Caprini VTE Risk Assessment: No/Low Risk (score <= 1) Caprini Risk Assessment Model Point Value = 1 Point Value = 2 Point Value = 3 Point Value = 5 Age 41-60 Minor surgery BMI > 25 kg/m2 Swollen legs Varicose veins or History of unexplained or recurrent spontaneous Oral contraceptives or hormone replacement Sepsis (< 1 month) Serious lung disease, including pneumonia (< 1 month) Abnormal pulmonary function Acute myocardial infarction Congestive heart failure (< 1 month) History of inflammatory bowel disease Medical patient at bed rest Age 61-74 Arthroscopic surgery Major open surgery (> 45 min) Laparoscopic surgery (> 45 min) Malignancy Confined to bed (> 72 hours) Immobilizing plaster cast Central venous access Age >= 75 History of VTE Family history of VTE Factor V Leiden Prothrombin [id number] Lupus anticoagulant Anticardiolipin antibodies Elevated serum homocysteine Heparin-induced thrombocytopenia Other congenital or acquired thrombophilia Stroke (< 1 month) Elective arthroplasty Hip, pelvis, or leg fracture Acute spinal cord injury (< 1 month) Prophylaxis Regimen Total Risk Factor Score Risk Level Prophylaxis Regimen 0-1 Low Early ambulation 2 Moderate Order ONE of the following: *Sequential Compression Device (SCD) *Heparin 5000 units SQ BID 3-4 Higher Order ONE of the following medications: *Heparin 5000 units SQ TID *Enoxaparin/Lovenox 40 mg SQ daily (WT < 150 kg, CrCl > 30 mL/min) *Enoxaparin/Lovenox 30 mg SQ daily (WT < 150 kg, CrCl > 10-29 mL/min) *Enoxaparin/Lovenox 30 mg SQ BID (WT < 150 kg, CrCl > 30 mL/min) AND/OR *Sequential Compression Device (SCD) 5 or more Highest Order ONE of the following medications: *Heparin 5000 units SQ TID (Preferred with Epidurals) *Enoxaparin/Lovenox 40 mg SQ daily (WT < 150 kg, CrCl > 30 mL/min) *Enoxaparin/Lovenox 30 mg SQ daily (WT < 150 kg, CrCl > 10-29 mL/min) *Enoxaparin/Lovenox 30 mg SQ BID (WT < 150 kg, CrCl > 30 mL/min) AND *Sequential Compression Device (SCD) Assessment and Plan Problem List: (1) Pneumonia ICD Code: J18.9 - Pneumonia, unspecified organism Status: Acute (2) Pleural effusion on left ICD Code: J90 - Pleural effusion, not elsewhere classified Status: Acute (3) COPD with exacerbation ICD Code: J44.1 - Chronic obstructive pulmonary disease with (acute) exacerbation Status: Acute (4) Hypoxia ICD Code: R09.02 - Hypoxemia Status: Acute (5) Cellulitis ICD Code: L03.90 - Cellulitis, unspecified Status: Acute Assessment and Plan This is a pleasant 58-year-old male patient with a known medical history of COPD , tobacco abuse as well as new diagnosis of hypertension who presented to the ED with complaints of worsening shortness of breath as well as left lower extremity swelling, redness and warmth. Community-acquired left lower lobe pneumonia with hypoxia and need for supplemental O2 Nonproductive cough suspect secondary to above vs recent new ERICA inhibitor use History of COPD with exacerbation - CT angiogram negative for PE. Left pleural effusion noted. With left upper lung infiltrate. Atelectasis. - Patient placed on azithromycin and ceftriaxone IV. Will continue. - Patient given 1 dose of IV methylprednisone in ED. Will continue scheduled IV steroids. Taper. - Carbon dioxide elevated on presentation. ABG performed showing hypercapnia and hypoxia. Will need BIPAP. Transfer to ICU. - CBC and BMP reviewed, essentially unremarkable. No leukocytosis. No fever. Lactic acid normal. Blood cultures pending, follow growth. - Continue home inhaler. Supplemental O2 as needed. - Will add Mucinex for congestion. - Hold ERICA inhibitor for now. Start on Amlodipine. Monitor BP trends. - Pulmonary consulted, input and recommendations pending. Left lower extremity cellulitis, failed outpatient antibiotic therapy of Keflex and Bactrim - Left lower extremity negative for DVT. - Control pain, Brierfield available as needed for pain scale. - Was given 1 dose of clindamycin in ED. Will continue Ceftriaxone. - Encourage elevation. Hypertension: BP elevated. Hold home ERICA due to cough. Will add Amlodipine. Monitor trends. Tobacco abuse: Encouraged cessation. Nicotine patch. DVT prophylaxis: Heparin. Problem Qualifiers (1) Pneumonia: Qualified Codes: J18.1 - Lobar pneumonia, unspecified organism (2) Cellulitis: Qualified Codes: L03.116 - Cellulitis of left lower limb Donna Denise Apr 04, 2018 08:38
[2018-04-04] MEDS: DOCUSATE SODIUM 50 MG/SENNA 8.6 MG TAB PO SCH ×2 (09:00→19:29)
[2018-04-04] MEDS: guaiFENesin E.R. 600 MG TAB PO SCH ×2 (10:06→19:27)
[2018-04-04] MEDS: SODIUM CHLORIDE 0.9% FLUSH 10 ML FLUSH IV FLUSH SCH ×2 (10:06→19:27)
[2018-04-04] MEDS: BUDESONIDE-FORMOTEROL 160/4.5 MCG INHALER INH SCH ×2 (10:06→20:07)
[2018-04-04] MEDS: HEPARIN SODIUM - SQ 10,000 UNITS/ML VIAL SQ SCH ×2 (10:07→19:27)
[2018-04-04] MEDS: NICOTINE 14 MG/24 HR PATCH T-DERMAL SCH (11:46)
[2018-04-04] MEDS: amLODIPine BESYLATE 5 MG TAB PO SCH (11:46)
[2018-04-04] MEDS: methylPREDNISolone SOD SUCC 40 MG/1 ML VIAL IV PUSH SCH ×3 (12:38→23:34)
[2018-04-04] MEDS: RESP: ALBUTEROL 2.5 MG/IPRATROPIUM 0.5 MG NEB (SCH) NEB ×2 (13:15→19:55)
[2018-04-04] MEDS ORDERED: CHLORHEXIDINE GLUCONATE 2 % 1 PACK (2 CLOTHS)(extra cloths) TOPICAL PRN (14:00)
[2018-04-04] MEDS: REMOVE OLD PATCH T-DERMAL SCH (19:29)
[2018-04-04 20:22] LABS: INTERNATIONAL NORMALIZED RATIO 1.3 RATIO; PROTHROMBIN TIME - PATIENT 12.7 SEC (9.8-11.6)
[2018-04-04] MEDS: cefTRIAXone INJ 1,000 MG in SODIUM CHLORIDE 0.9% INJ 100 ML IV SCH (22:39)
[2018-04-04] MEDS: AZITHROMYCIN INJ 500 MG in SODIUM CHLOR 0.9% 250 ML INJ 250 ML IV SCH (23:35)
--- NOTE | 2018-04-04 23:41 | MB ---
cc: Margo Aragon MD DATE: 04/04/2018 REASON FOR CONSULTATION: COPD exacerbation, pneumonia. HISTORY OF PRESENT ILLNESS: The patient is a 58-year-old male with known history of COPD, comes to the emergency room complaining of increasing shortness of breath. He has chronic lower extremity edema, which has been worse lately with associated cellulitis. The patient was in the emergency room on 02/28 and was given antibiotic therapy without improvement and increasing lower extremity edema. He does have a chronic cough, expectoration of whitish ____ mucoid sputum. Denies history of fevers, chills or hemoptysis. PAST MEDICAL HISTORY: ____ COPD, hypertension, has dental implants. SOCIAL HISTORY: Smokes a pack of cigarettes a day for over 40 years, continues to smoke up until this time. He drinks alcohol socially. He does not use drugs. FAMILY HISTORY: Noncontributory. ALLERGIES: . CURRENT MEDICATIONS: Ceftriaxone, Rocephin, Zithromax, Symbicort. He was given Pneumovax in the emergency room. FAMILY HISTORY: Noncontributory. REVIEW OF SYSTEMS: A 12-point review of systems as per HPI and past history, otherwise negative. PHYSICAL EXAMINATION: VITAL SIGNS: Temperature 98.7, pulse 92, respirations 20, blood pressure ____, oxygen saturation 92% on 3 liters oxygen nasal cannula. HEENT: Unremarkable. Eyes without icterus. NECK: Without adenopathy or thyroid enlargement. Central trachea. CHEST: Few scattered rhonchi bilaterally, decreased breath sounds at the base. CARDIAC: PMI not appreciated. S1, S2 audible. No murmur, gallop or rub. ABDOMEN: Lax. Bowel sounds are audible. EXTREMITIES: No clubbing, cyanosis or edema. LABORATORY DATA: White count 6.4, hemoglobin 16, hematocrit 40, platelets 151,000. Sodium 139, potassium 4.4, BUN 8, creatinine 0.7. IMAGING: CT angiogram, no pulmonary embolism. Moderate left pleural effusion. Left upper lobe lung infiltrate, atelectatic change of right lower lobe. IMPRESSION: 1. Chronic obstructive pulmonary disease exacerbation. 2. Pneumonia. 3. Cellulitis, both lower extremities. 4. Left upper lung infiltrate, respiratory failure, on oxygen therapy. PLAN: The patient has been started on antibiotic therapy ____ a left thoracentesis would be appropriate ____ diagnostic and therapeutic objective, especially given the patient's evidence of lung infiltrate. The patient's CT angiogram is without pulmonary embolism. We will obtain Doppler venous studies of both lower extremities to assure the absence of underlying deep venous thrombosis. Continue antibiotic therapy, bronchodilator therapy. Follow the patient's chest x-ray as there is atelectatic change on right and infiltrate on the left, again with pleural effusion, which will be followed until clear. I do thank you for asking me to partake in Mr. Jones's care. Margo Aragon MD WWW/[email or web address]/patrick , 09:25 PM , 10:44 PM
[2018-04-05] VITALS (32 sets, daily range): BP systolic 111–158; BP diastolic 67–89; PULSE 60–96; RESP 12–25; TEMP 97.1–98.7; O2SAT 72–97
[2018-04-05] MEDS: CHLORHEXIDINE GLUCONATE 2 % 1 PACK (2 CLOTHS)(taper/protocol) TOPICAL SCH (04:00)
[2018-04-05] MEDS: methylPREDNISolone SOD SUCC 40 MG/1 ML VIAL IV PUSH SCH ×4 (04:47→23:35)
[2018-04-05 04:56] LABS: AUTOMATED NEUTROPHIL # 10.6 TH/MM3 (1.8-7.7); BASOPHIL # 0.2 TH/MM3 (0-0.2); BASOPHIL % 1.6 % (0.0-2.0); EOSINOPHIL % 0.1 % (0.0-4.0); HEMATOCRIT 52.1 % (39.0-51.0); HEMOGLOBIN 16.2 GM/DL (13.0-17.0); LYMPH % 4.4 % (9.0-44.0); LYMPHOCYTE # 0.5 TH/MM3 (1.0-4.8); MEAN CELL VOLUME 92.1 FL (80.0-100.0); MEAN CORPUSCULAR HEMOGLOBIN 28.7 PG (27.0-34.0); MEAN CORPUSCULAR HGB CONC 31.1 % (32.0-36.0); MEAN PLATELET VOLUME 8.1 FL (7.0-11.0); MONOCYTE # 0.2 TH/MM3 (0-0.9); NEUT % 91.9 % (16.0-70.0); PLATELET COUNT 160 TH/MM3 (150-450); RED BLOOD COUNT 5.65 MIL/MM3 (4.50-5.90); RED CELL DISTRIBUTION WIDTH 15.7 % (11.6-17.2); WHITE BLOOD COUNT 11.5 TH/MM3 (4.0-11.0)
[2018-04-05 05:03] LABS: CHLORIDE 99 MEQ/L (98-107); SODIUM (NA) 139 MEQ/L (136-145)
[2018-04-05 05:06] LABS: ALBUMIN 3.4 GM/DL (3.4-5.0); BLOOD UREA NITROGEN 11 MG/DL (7-18); CALCIUM 8.4 MG/DL (8.5-10.1); GLUCOSE,RANDOM 148 MG/DL (74-106)
[2018-04-05 05:09] LABS: ALT (GPT) 19 U/L (12-78); AST (GOT) 11 U/L (15-37); CREATININE 0.72 MG/DL (0.60-1.30); GLOMERULAR FILTRATION RATE 113 ML/MIN (>89)
[2018-04-05 05:11] LABS: TOTAL BILIRUBIN ADULT 0.6 MG/DL (0.2-1.0); TOTAL PROTEIN 7.3 GM/DL (6.4-8.2)
[2018-04-05 05:12] LABS: ALKALINE PHOSPHATASE 109 U/L (45-117)
[2018-04-05] MEDS: RESP: ALBUTEROL 2.5 MG/IPRATROPIUM 0.5 MG NEB (SCH) NEB ×3 (07:30→19:51)
[2018-04-05] MEDS: NICOTINE 14 MG/24 HR PATCH T-DERMAL SCH (08:10)
[2018-04-05] MEDS: DOCUSATE SODIUM 50 MG/SENNA 8.6 MG TAB PO SCH ×2 (08:10→20:51)
[2018-04-05] MEDS: amLODIPine BESYLATE 5 MG TAB PO SCH (08:10)
[2018-04-05] MEDS: guaiFENesin E.R. 600 MG TAB PO SCH ×2 (08:10→20:51)
[2018-04-05] MEDS: SODIUM CHLORIDE 0.9% FLUSH 10 ML FLUSH IV FLUSH SCH ×2 (08:11→21:00)
[2018-04-05] MEDS: BUDESONIDE-FORMOTEROL 160/4.5 MCG INHALER INH SCH ×2 (08:12→20:51)
[2018-04-05] MEDS: HEPARIN SODIUM - SQ 10,000 UNITS/ML VIAL SQ SCH ×2 (09:00→20:52)
--- NOTE | 2018-04-05 09:09 | RADRPT ---
EXAM DATE: 04/05/2018 8:40 AM EDT AGE/SEX: 58 years / Male INDICATIONS: Shortness of breath. Left pleural effusion. CLINICAL DATA: This is the patient's subsequent encounter. Patient reports that signs and symptoms h ave been present for 1 day and indicates a pain score of 0/10. MEDICAL/SURGICAL HISTORY: . COPD. Hypertension. . Right knee arthroscopy. COMPARISON: [facility], CHEST SINGLE AP, 04/03/2018. . MEASUREMENTS: Skin To Parietal Pleura:__3.2 cm Skin To Max Safe Depth:__6.6 cm Estimated Fluid Volume:__1506 cc Fluid Composition:__simple FINDINGS: Pleural effusion as above. CONCLUSION: 1. Moderate size simple appearing left pleural effusion. 2. Oral was placed on the skin superficial to the collection. Electronically signed by: Woody Lee MD 04/05/2018 9:08 AM EDT
--- NOTE | 2018-04-05 09:34 | RADRPT ---
EXAM DATE: 04/05/2018 9:31 AM EDT AGE/SEX: 58 years / Male INDICATIONS: Redness and shortness of breath. CLINICAL DATA: This is the patient's sequela encounter. Patient reports that signs and symptoms have been present for 2 months and indicates a pain score of 0/10. MEDICAL/SURGICAL HISTORY: . Hypertension. COPD. . Right knee arthroscopy. COMPARISON: No prior [facility] exams available for comparison. TECHNIQUE: Venous ultrasound of both lower extremities was performed from the inguinal ligament to t he proximal calf. Real-time, color Doppler and spectral tracing, compression and augmentation techni ques were used. FINDINGS: Right Leg: There is normal compressibility of the deep venous system from the inguinal region to the proximal calf. No echogenic clot is seen in the lumen of the common femoral, femoral, popliteal, an d posterior tibial veins. There is a normal response of the venous system to proximal and distal aug mentation and respiration. Left Leg: There is normal compressibility of the deep venous system from the inguinal region to the proximal calf. No echogenic clot is seen in the lumen of the common femoral, femoral, popliteal, and posterior tibial veins. There is a normal response of the venous system to proximal and distal augm entation and respiration. CONCLUSION: 1. The study is negative for bilateral lower extremity deep venous thrombosis. Electronically signed by: Emery Zepeda MD 04/05/2018 9:32 AM EDT
[2018-04-05] MEDS ORDERED: PNEUMOCOCCAL POLYVALENT INJ 25 MCG/0.5 ML SYR IM ONE (10:00)
--- NOTE | 2018-04-05 11:55 | HHI.PR ---
Subjective Remarks Patient seen and examined today for follow-up on hypoxia, pleural effusion. Patient resting in bed comfortably. He is on 3 L nasal cannula with O2 saturations 88-90%. Awaiting thoracentesis to be performed by interventional radiology. Patient denies any new complaints. Vital signs are stable, patient remains afebrile. Objective Vitals Vital Signs Date Time Temp Pulse Resp B/P (MAP) Pulse Ox O2 Delivery O2 Flow Rate FiO2 04/05/18 07:30 89 Nasal Cannula 3.00 04/05/18 06:00 60 16 135/88 (104) 93 04/05/18 06:00 60 04/05/18 05:00 60 17 139/81 (100) 94 04/05/18 04:40 92 50 04/05/18 04:00 64 04/05/18 04:00 97.6 64 12 116/84 (95) 97 04/05/18 03:00 62 15 129/82 (98) 95 04/05/18 02:00 66 16 127/81 (96) 91 04/05/18 02:00 66 04/05/18 01:24 91 30 04/05/18 01:00 72 16 140/79 (99) 91 04/05/18 00:54 87 50 04/05/18 00:00 74 04/05/18 00:00 97.1 74 16 124/72 (89) 89 04/04/18 23:00 76 18 112/68 (83) 90 04/04/18 22:00 88 18 147/79 (101) 86 04/04/18 22:00 88 04/04/18 21:40 94 40 04/04/18 21:00 88 18 143/69 (93) 90 04/04/18 20:27 98.4 88 19 132/71 (91) 89 04/04/18 20:00 82 04/04/18 20:00 Bi-Pap 40 04/04/18 19:50 91 Nasal Cannula 3.00 04/04/18 19:01 82 21 129/76 (93) 88 04/04/18 18:00 86 18 156/81 (106) 89 04/04/18 17:30 98.5 94 28 165/78 (107) 04/04/18 16:40 94 40 04/04/18 15:10 92 Bi-Pap 5.00 35 04/04/18 15:00 92 35 04/04/18 15:00 70 16 125/66 (85) 95 04/04/18 15:00 70 04/04/18 14:00 94 High Flow Nasal Cannula 40.00 40 04/04/18 14:00 98.6 80 14 125/66 (85) 93 04/04/18 14:00 94 Nasal Cannula 40.00 40 04/04/18 13:30 84 21 161/79 (106) 88 04/04/18 13:16 91 Nasal Cannula 3.00 04/04/18 13:00 97 Nasal Cannula 3.00 04/04/18 13:00 90 04/04/18 12:00 97.0 94 19 143/83 (103) 94 I/O 04/04/18 04/04/18 04/04/18 04/05/18 04/05/18 04/05/18 07:00 15:00 23:00 07:00 15:00 23:00 Intake Total 240 ml 720 ml 350 ml Output Total 900 ml 500 ml 575 ml 825 ml Balance -900 ml -260 ml 145 ml -475 ml Intake Oral 240 ml 720 ml IV Total 350 ml Output Urine Total 900 ml 500 ml 575 ml 825 ml # Voids 2 # Bowel Movements 0 Result Diagram: 04/05/18 0435 04/05/18 0435 Imaging Last Impressions Lower Extremity Ultrasound 04/05/18 Signed Impressions: CONCLUSION: 1. The study is negative for bilateral lower extremity deep venous thrombosis. Chest Ultrasound 04/05/18 Signed Impressions: CONCLUSION: 1. Moderate size simple appearing left pleural effusion. 2. Oral was placed on the skin superficial to the collection. CT Angiography 04/04/18 Signed Impressions: CONCLUSION: 1. No evidence of pulmonary embolism. 2. Moderate left pleural effusion with compressive atelectasis of the left low er lung. 3. Parenchymal infiltrate in the left upper lung. 4. Atelectasis in the right lower lung. Chest X-Ray 04/03/181918 Signed Impressions: CONCLUSION: 1. Patchy opacity within left lung base consistent with possible pneumonia. 2. Small left pleural effusion. 3. Cardiomegaly. 4. Degenerative changes and scoliosis of the thoracic spine. Objective Remarks GENERAL: Well-developed, well-nourished, in no acute distress. alert and orientated HEENT: Head is normocephalic without any lesions or masses noted. Facial features are symmetric. Eyes: Extraocular muscles are intact. Conjunctivae were clear. NECK: Supple without any masses. Trachea midline no deviation. No JVD, CARDIAC: Regular rhythm, regular rate. S1/S2 are heard. No murmurs gallops or rubs. LUNGS: Significantly diminished if not absent breath sounds of the entire left lung, no wheeze, rhonchi or rales. No use of accessory muscles on inspiration or expiration. ABDOMEN: Soft, nontender. Nondistended. Bowel sounds heard in all 4 quadrants. No organomegaly or masses. Negative rebound, negative guarding EXTREMITIES: 2+ edema noted in the left lower extremity. Right lower extremity without any edema., pulses are equal bilaterally. No cyanosis or clubbing NEUROLOGY: Mood and affect appear appropriate. Cranial nerves II through XII grossly intact. Moving all extremities, speech is clear Urinary Catheter: No Vascular Central Line Catheter: No A/P Assessment and Plan Acute hypoxic respiratory failure -Multifactorial with patient having significant left-sided pleural effusion of unknown etiology, community acquired pneumonia, chronic objective pulmonary disease -Interventional radiology requested for diagnostic and therapeutic thoracentesis to obtain fluid for analysis -[employer] Apprentice consulted for recommendations -Continue O2 supplementation maintain O2 sats greater than 92%, BiPAP as needed -Patient continued on Rocephin and Zithromax for pneumonia treatment -Continue duo nebs every 6 hours while awake and every 2 hours as needed -Continue Solu-Medrol 40 mg every 6 hours -Continue Symbicort 2 puffs every 12 hours -Continue Mucinex -Awaiting echocardiogram report Left lower extremity cellulitis, failed outpatient antibiotic therapy of Keflex and Bactrim, improving -Left lower extremity negative for DVT. -Control pain, [place] available as needed for pain scale. -Encourage elevation. Hypertension: -Continue amlodipine 5 mg daily -ERICA inhibitor on hold due to cough Tobacco abuse: -Counseled patient on cessation -Nicotine patch DVT prophylaxis: -Subcutaneous heparin. Discharge Planning Discharge planning 24-48 hours pending outpatient results of the thoracentesis and response to therapy Jamshid Lieberman Apr 05, 2018 11:55
--- NOTE | 2018-04-05 16:14 | ECHRPT ---
Indication: SHORTNESS OF BREATH CONCLUSIONS The left ventricular systolic function is hyperdynamic with an estimated ejection fraction in the ra nge of 65- 70%. Mild concentric left ventricular hypertrophy. The right ventricular systoilc function is mildly decreased. Mild aortic valve stenosis (peak grad 21, mean grad 11, ANUM 1.2). There is mild tricuspid valve regurgitation. Large left pleural effusion. BP: 135 / 88 HR: 60 Rhythm: Sinus MEASUREMENTS (Male / Female) Normal Values Technical Quality:Fair 2D ECHO LV Diastolic Diameter PLAX 5.9 cm 4.2 - 5.9 / 3.9 - 5.3 cm LV Systolic Diameter PLAX 4.0 cm IVS Diastolic Thickness 1.3 cm 0.6 - 1.0 / 0.6 - 0.9 cm LVPW Diastolic Thickness 1.3 cm 0.6 - 1.0 / 0.6 - 0.9 cm LV Relative Wall Thickness 0.5 RV Internal Dim ED PLAX 2.4 cm LVOT Diameter 2.3 cm Aortic Root Diameter 3.1 cm LA Systolic Diameter LX 3.7 cm 3.0 - 4.0 / 2.7 - 3.8 cm M-MODE AV Cusp Separation MM 1.9 cm DOPPLER AV Peak Velocity 227.0 cm/s AV Peak Gradient 20.6 mmHg AV Mean Gradient 11.0 mmHg AV Velocity Time Integral 42.5 cm LVOT Peak Velocity 66.2 cm/s LVOT Peak Gradient 1.8 mmHg LVOT Velocity Time Integral 12.6 cm AV Area Cont Eq vti 1.2 cm AV Area Cont Eq pk 1.2 cm Mitral E Point Velocity 102.0 cm/s Mitral A Point Velocity 73.5 cm/s Mitral E to A Ratio 1.4 LV E' Lateral Velocity 10.6 cm/s Mitral E to LV E' Lateral Ratio 9.6 LV E' Septal Velocity 10.5 cm/s Mitral E to LV E' Septal Ratio 9.7 TR Peak Velocity 410.0 cm/s TR Peak Gradient 67.2 mmHg Right Atrial Pressure 10.0 mmHg Pulmonary Artery Systolic Pressu 77.2 mmHg Right Ventricular Systolic Press 77.2 mmHg PV Peak Velocity 79.7 cm/s PV Peak Gradient 2.5 mmHg FINDINGS LEFT VENTRICLE Normal left ventricular size. The left ventricular systolic function is hyperdynamic with an estimated ejection fraction in the ra nge of 65- 70%. Mild concentric left ventricular hypertrophy. No regional wall motion abnormalities are present. RIGHT VENTRICLE Normal right ventricular size The right ventricular systoilc function is mildly decreased. LEFT ATRIUM The left atrial size is normal. RIGHT ATRIUM The right atrial size is normal. ATRIAL SEPTUM No atrial level shunt is demonstrated by color flow Doppler interrogation. AORTA The aortic root and proximal ascending aorta are not well visualized. MITRAL VALVE Structurally normal mitral valve. No mitral valve stenosis or regurgitation. AORTIC VALVE No aortic valve regurgitation. Mild aortic valve stenosis (peak grad 21, mean grad 11, ANUM 1.2) TRICUSPID VALVE There is mild tricuspid valve regurgitation. The estimated pulmonary arterial pressure is 38 mmHg. PULMONARY VALVE No pulmonary valve regurgitation or stenosis. PERICARDIUM Large left pleural effusion. Matthew Jacobson DO (Electronically Signed) Final Date:05 April 2018 16:14
--- NOTE | 2018-04-05 16:47 | RADRPT ---
EXAM DATE: 04/05/2018 4:43 PM EDT AGE/SEX: 58 years / Male INDICATIONS: Status post left lung thoracentesis. CLINICAL DATA: This is the patient's subsequent encounter. Patient reports that signs and symptoms h ave been present for 1 day and indicates a pain score of 0/10. MEDICAL/SURGICAL HISTORY: None. None. COMPARISON: [facility], CHEST SINGLE AP, 04/03/2018. [facility], CT PULMONARY ANGIOGRAM, 04/04/2018. . FINDINGS: Portable upright expiratory view of the chest demonstrates no pneumothorax following recent left thor acentesis. There is continued mild opacity at the left lung base. Cardiac silhouette size remains mil dly enlarged. Right lung demonstrates no abnormality. EKG lines overlie the patient. CONCLUSION: No pneumothorax identified following recent left thoracentesis. There is likely residual atelectasis in the left lower lobe. Electronically signed by: Woody Lee MD 04/05/2018 4:46 PM EDT
--- NOTE | 2018-04-05 17:07 | RADRPT ---
EXAM DATE: 04/05/2018 4:59 PM EDT AGE/SEX: 58 years / Male INDICATIONS: Left pleural effusion. CLINICAL DATA: This is the patient's subsequent encounter. Patient reports that signs and symptoms h ave been present for 1 day and indicates a pain score of 0/10. MEDICAL/SURGICAL HISTORY: . Hypertension. COPD. . Right knee arthroscopy. COMPARISON: None. FLUID: Total volume of 1200 cc cc of clear, yellow fluid was removed. Fluid was sent to lab for ordered studies. . . TECHNIQUE: Ultrasound guidance for thoracentesis. Thoracentesis. FINDINGS: The risks, benefits, and alternatives to ultrasound guided thoracentesis were explained to the ambika ent in lay simple terms, including the risk of bleeding and infection. Written and verbal informed c onsent was obtained. Appropriate area for left thoracentesis was marked under ultrasound guidance with the patient in the upright position. Overlying skin was prepped and draped in the usual sterile fashion and with local anesthetic, a dermatotomy was made with an 11 blade scalpel. A 6 Serbian thoracentesis catheter was p laced in the pleural space and fluid was removed. Catheter was then removed and a sterile dressing a pplied. There were no immediate complications. The patient tolerated the procedure well and the left the ultrasound suite in stable condition. Chest radiograph is to be obtained. CONCLUSION: 1. Uncomplicated left thoracentesis. Sample of fluid sent to the lab as requested. Electronically signed by: Ran Guardado MD 04/05/2018 5:06 PM EDT
[2018-04-05 17:55] LABS: PLEURAL FLUID LYMPHS 74 %; PLEURAL FLUID MONOS 2 %; PLEURAL FLUID POLYS (SEGS) 24 %; PLEURAL FLUID RBC 249 /MM3 (0-0); PLEURAL FLUID WBC 348 /MM3 (0-10)
[2018-04-05 18:01] LABS: TOTAL PROTEIN,PLEURAL FLUID 3.1 GM/DL
--- NOTE | 2018-04-05 18:03 | HHI.PR ---
Subjective Remarks 58 YOWM with Nicotine use, swelling left leg, Pn Had TC, 1200 cc fluid removed Breathing better No fever Objective Vital Signs Vital Signs Date Time Temp Pulse Resp B/P (MAP) Pulse Ox O2 Delivery O2 Flow Rate FiO2 04/05/18 15:15 86 13 90 04/05/18 15:00 86 14 133/80 (97) 93 04/05/18 14:00 80 21 125/79 (94) 91 04/05/18 14:00 80 04/05/18 13:00 84 20 136/72 (93) 91 04/05/18 12:00 98.1 96 15 153/85 (107) 91 04/05/18 12:00 96 04/05/18 11:00 84 18 123/67 (85) 93 04/05/18 10:00 90 24 125/68 (87) 89 04/05/18 10:00 90 04/05/18 09:00 92 15 115/68 (84) 72 04/05/18 08:00 97.5 82 21 135/81 (99) 95 04/05/18 08:00 82 04/05/18 08:00 95 Nasal Cannula 3.00 04/05/18 07:30 89 Nasal Cannula 3.00 04/05/18 07:00 74 15 139/82 (101) 96 04/05/18 06:00 60 16 135/88 (104) 93 04/05/18 06:00 60 04/05/18 05:00 60 17 139/81 (100) 94 04/05/18 04:40 92 50 04/05/18 04:00 64 04/05/18 04:00 97.6 64 12 116/84 (95) 97 04/05/18 03:00 62 15 129/82 (98) 95 04/05/18 02:00 66 16 127/81 (96) 91 04/05/18 02:00 66 04/05/18 01:24 91 30 04/05/18 01:00 72 16 140/79 (99) 91 04/05/18 00:54 87 50 04/05/18 00:00 74 04/05/18 00:00 97.1 74 16 124/72 (89) 89 04/04/18 23:00 76 18 112/68 (83) 90 04/04/18 22:00 88 18 147/79 (101) 86 04/04/18 22:00 88 04/04/18 21:40 94 40 04/04/18 21:00 88 18 143/69 (93) 90 04/04/18 20:27 98.4 88 19 132/71 (91) 89 04/04/18 20:00 82 04/04/18 20:00 Bi-Pap 40 04/04/18 19:50 91 Nasal Cannula 3.00 04/04/18 19:01 82 21 129/76 (93) 88 I/O 04/04/18 04/04/18 04/04/18 04/05/18 04/05/18 04/05/18 07:00 15:00 23:00 07:00 15:00 23:00 Intake Total 240 ml 720 ml 350 ml Output Total 900 ml 500 ml 575 ml 825 ml Balance -900 ml -260 ml 145 ml -475 ml Intake Oral 240 ml 720 ml IV Total 350 ml Output Urine Total 900 ml 500 ml 575 ml 825 ml # Voids 2 # Bowel Movements 0 Result Diagram: 04/05/18 0435 04/05/18 0435 Objective Remarks GENERAL: WBWN WM, NAD SKIN: Warm and dry. HEAD: Normocephalic. EYES: No scleral icterus. No injection or drainage. NECK: Supple, trachea midline. No JVD or lymphadenopathy. CARDIOVASCULAR: Regular rate and rhythm without murmurs, gallops, or rubs. RESPIRATORY: Breath sounds equal bilaterally. No accessory muscle use. Decreased BS at bases GASTROINTESTINAL: Abdomen soft, non-tender, nondistended. MUSCULOSKELETAL: No cyanosis, or edema. Swelling left leg BACK: Nontender without obvious deformity. No CVA tenderness. A/P Assessment and Plan IMPRESSION: Pneumonia Atelactesis Pleural eff, s/p RC COPD Nicotine use Cellulitis left leg PLAN: Cont Abx IV Solumedrol Aerosol nebs Supplement [address] fluid results Sawyer Hernandez MD Apr 05, 2018 18:03
[2018-04-05] MEDS: REMOVE OLD PATCH T-DERMAL SCH (20:54)
[2018-04-05] MEDS: AZITHROMYCIN INJ 500 MG in SODIUM CHLOR 0.9% 250 ML INJ 250 ML IV SCH (23:34)
[2018-04-05] MEDS: cefTRIAXone INJ 1,000 MG in SODIUM CHLORIDE 0.9% INJ 100 ML IV SCH (23:35)
[2018-04-06] VITALS (43 sets, daily range): BP systolic 122–169; BP diastolic 66–95; PULSE 64–90; RESP 13–34; TEMP 97.6–99.1; O2SAT 87–96
[2018-04-06] MEDS: CHLORHEXIDINE GLUCONATE 2 % 1 PACK (2 CLOTHS)(taper/protocol) TOPICAL SCH (04:00)
[2018-04-06] MEDS: methylPREDNISolone SOD SUCC 40 MG/1 ML VIAL IV PUSH SCH ×4 (05:44→23:28)
[2018-04-06] MEDS: RESP: ALBUTEROL 2.5 MG/IPRATROPIUM 0.5 MG NEB (SCH) NEB ×3 (07:10→19:27)
[2018-04-06] MEDS: BUDESONIDE-FORMOTEROL 160/4.5 MCG INHALER INH SCH ×2 (08:56→20:11)
[2018-04-06] MEDS: amLODIPine BESYLATE 5 MG TAB PO SCH (08:57)
[2018-04-06] MEDS: guaiFENesin E.R. 600 MG TAB PO SCH ×2 (08:57→20:11)
[2018-04-06] MEDS: DOCUSATE SODIUM 50 MG/SENNA 8.6 MG TAB PO SCH ×2 (08:57→20:11)
[2018-04-06] MEDS: SODIUM CHLORIDE 0.9% FLUSH 10 ML FLUSH IV FLUSH SCH ×2 (08:57→20:11)
[2018-04-06] MEDS: HEPARIN SODIUM - SQ 10,000 UNITS/ML VIAL SQ SCH ×2 (08:58→20:12)
[2018-04-06] MEDS: NICOTINE 14 MG/24 HR PATCH T-DERMAL SCH (08:59)
[2018-04-06] MEDS ORDERED: FUROSEMIDE 40 MG/4 ML VIAL IV PUSH ONE (09:00)
[2018-04-06] MEDS: POTASSIUM CHLORIDE 20 MEQ CONTROLLED RELEASE TAB PO SCH (09:19)
--- NOTE | 2018-04-06 10:28 | HHI.PR ---
Subjective Remarks Patient seen and examined today for follow-up on hypoxic respiratory failure, pleural effusion. Patient is resting comfortably in bed. Denies any significant breathing issues. Patient remains on increased O2 supplementation to maintain O2 sats. Patient remains afebrile Objective Vitals Vital Signs Date Time Temp Pulse Resp B/P (MAP) Pulse Ox O2 Delivery O2 Flow Rate FiO2 04/06/18 10:13 79 04/06/18 10:12 72 17 137/78 (97) 93 04/06/18 09:01 74 19 160/90 (113) 93 04/06/18 08:16 76 32 87 04/06/18 08:03 74 27 158/91 (113) 94 04/06/18 08:00 77 04/06/18 07:12 94 Nasal Cannula 3.00 04/06/18 07:01 98.3 80 13 155/87 (109) 04/06/18 07:00 92 Nasal Cannula 4.00 04/06/18 06:20 70 04/06/18 06:01 68 18 153/89 (110) 04/06/18 05:01 98.4 64 19 157/89 (111) 04/06/18 04:06 93 Nasal Cannula 3.00 04/06/18 04:00 78 22 149/86 (107) 95 04/06/18 04:00 70 04/06/18 03:20 95 50 04/06/18 03:01 76 17 149/82 (104) 04/06/18 02:00 74 04/06/18 02:00 86 24 135/66 (89) 95 04/06/18 01:00 74 04/06/18 00:45 82 28 122/91 (101) 93 04/06/18 00:00 74 04/05/18 23:44 78 21 158/89 (112) 94 04/05/18 22:44 78 20 156/87 (110) 91 04/05/18 22:00 84 04/05/18 21:44 82 20 140/78 (98) 92 04/05/18 20:44 98.7 88 25 131/82 (98) 91 04/05/18 20:00 85 04/05/18 19:51 93 Nasal Cannula 3.00 04/05/18 19:15 Nasal Cannula 3.00 04/05/18 19:00 72 15 111/70 (84) 93 04/05/18 18:00 82 22 140/83 (102) 93 04/05/18 18:00 82 04/05/18 17:00 76 15 126/77 (93) 88 04/05/18 16:00 98.2 82 22 131/75 (93) 93 04/05/18 16:00 82 04/05/18 15:00 86 14 133/80 (97) 93 04/05/18 14:00 80 21 125/79 (94) 91 04/05/18 14:00 80 04/05/18 13:00 84 20 136/72 (93) 91 04/05/18 12:00 98.1 96 15 153/85 (107) 91 04/05/18 12:00 96 04/05/18 11:00 84 18 123/67 (85) 93 I/O 04/05/18 04/05/18 04/05/18 04/06/18 04/06/18 04/06/18 07:00 15:00 23:00 07:00 15:00 23:00 Intake Total 350 ml 720 ml 222 ml Output Total 825 ml 1450 ml 700 ml 550 ml Balance -475 ml -730 ml -700 ml -328 ml Intake Oral 720 ml 222 ml IV Total 350 ml Output Urine Total 825 ml 1450 ml 700 ml 550 ml # Bowel Movements 0 1 Result Diagram: 04/05/18 0435 04/05/18 0435 Objective Remarks GENERAL: Well-developed, well-nourished, in no acute distress. alert and orientated HEENT: Head is normocephalic without any lesions or masses noted. Facial features are symmetric. Eyes: Extraocular muscles are intact. Conjunctivae were clear. NECK: Supple without any masses. Trachea midline no deviation. No JVD, CARDIAC: Regular rhythm, regular rate. S1/S2 are heard. No murmurs gallops or rubs. LUNGS: Significantly diminished if not absent breath sounds of the entire left lung, no wheeze, rhonchi or rales. No use of accessory muscles on inspiration or expiration. ABDOMEN: Soft, nontender. Nondistended. Bowel sounds heard in all 4 quadrants. No organomegaly or masses. Negative rebound, negative guarding EXTREMITIES: 2+ edema noted in the left lower extremity. Right lower extremity with 1+ edema., pulses are equal bilaterally. No cyanosis or clubbing NEUROLOGY: Mood and affect appear appropriate. Cranial nerves II through XII grossly intact. Moving all extremities, speech is clear Urinary Catheter: No Vascular Central Line Catheter: No A/P Assessment and Plan Acute hypoxic respiratory failure -Multifactorial with patient having significant left-sided pleural effusion of unknown etiology, community acquired pneumonia, chronic objective pulmonary disease -Interventional radiology performed thoracentesis with removal of 1200 cc of yellow/clear fluid -Pleural fluid does have increased WBCs and RBCs, however LDH and total protein indicating transudative fluid -Industrial Technology Teacher consulted for recommendations -Continue O2 supplementation maintain O2 sats greater than 92%, BiPAP as needed -Patient continued on Rocephin and Zithromax for pneumonia treatment -Continue duo nebs every 6 hours while awake and every 2 hours as needed -Continue Solu-Medrol 40 mg every 6 hours -Continue Symbicort 2 puffs every 12 hours -Continue Mucinex -Echocardiogram indicates normal left ventricular function and ejection fraction 65-70%. Mild aortic valve stenosis. -Give Lasix 40 mg IV 1 and then continue Lasix 20 mg p.o. twice daily with KCl 20 mg daily Left lower extremity cellulitis, failed outpatient antibiotic therapy of Keflex and Bactrim, improving -Left lower extremity negative for DVT. -Control pain, [place] available as needed for pain scale. -Encourage elevation. Hypertension: -Continue amlodipine 5 mg daily -ERICA inhibitor on hold due to cough Tobacco abuse: -Counseled patient on cessation -Nicotine patch DVT prophylaxis: -Subcutaneous heparin. Discharge Planning Discharge planning 24-48 hours depending on response to therapy and the ability to wean off oxygen Jamshid Lieberman Apr 06, 2018 10:28
--- NOTE | 2018-04-06 14:14 | RADRPT ---
EXAM DATE: 04/06/2018 2:05 PM EDT AGE/SEX: 58 years / Male INDICATIONS: Short of breath. Cough. CLINICAL DATA: This is the patient's subsequent encounter. Patient reports that signs and symptoms h ave been present for 3 days and indicates a pain score of 0/10. MEDICAL/SURGICAL HISTORY: Hypertension. Chronic obstructive pulmonary disease. Smoker. . Righ t knee arthroscopy. COMPARISON: [facility]PO, CHEST SINGLE AP, 04/03/2018. . FINDINGS: There has been significant improvement in left base consolidative change. Right lung remains clear. C ardiac contours are grossly stable and satisfactory. CONCLUSION: Significant improvement in aeration Electronically signed by: Woody Santana MD 04/06/2018 2:13 PM EDT
[2018-04-06] MEDS: FUROSEMIDE 20 MG TAB PO SCH (18:01)
--- NOTE | 2018-04-06 18:29 | HHI.PR ---
Subjective Remarks 58 YOWM with Nicotine use, swelling left leg, Pn Had TC, 1200 cc fluid removed Breathing better No fever Desaturates with activity and sleeping Up in chair Objective Vital Signs Vital Signs Date Time Temp Pulse Resp B/P (MAP) Pulse Ox O2 Delivery O2 Flow Rate FiO2 04/06/18 18:01 72 23 140/78 (98) 92 04/06/18 18:00 74 04/06/18 17:01 84 31 161/90 (113) 91 04/06/18 17:00 82 04/06/18 16:03 74 25 151/79 (103) 93 04/06/18 16:01 99.1 76 29 163/95 (117) 95 04/06/18 16:00 80 04/06/18 15:01 74 21 149/80 (103) 95 04/06/18 14:01 76 23 150/75 (100) 96 04/06/18 14:00 70 04/06/18 13:15 88 Nasal Cannula 4.00 04/06/18 13:01 72 13 142/81 (101) 91 04/06/18 13:00 70 04/06/18 12:01 97.6 80 34 153/84 (107) 95 04/06/18 12:00 80 04/06/18 11:01 66 17 150/77 (101) 93 04/06/18 11:00 64 04/06/18 10:13 79 04/06/18 10:12 72 17 137/78 (97) 93 04/06/18 09:01 74 19 160/90 (113) 93 04/06/18 08:16 76 32 87 04/06/18 08:03 74 27 158/91 (113) 94 04/06/18 08:00 77 04/06/18 07:12 94 Nasal Cannula 3.00 04/06/18 07:01 98.3 80 13 155/87 (109) 04/06/18 07:00 92 Nasal Cannula 4.00 04/06/18 06:20 70 04/06/18 06:01 68 18 153/89 (110) 04/06/18 05:01 98.4 64 19 157/89 (111) 04/06/18 04:06 93 Nasal Cannula 3.00 04/06/18 04:00 78 22 149/86 (107) 95 04/06/18 04:00 70 04/06/18 03:20 95 50 04/06/18 03:01 76 17 149/82 (104) 04/06/18 02:00 74 04/06/18 02:00 86 24 135/66 (89) 95 04/06/18 01:00 74 04/06/18 00:45 82 28 122/91 (101) 93 04/06/18 00:00 74 04/05/18 23:44 78 21 158/89 (112) 94 04/05/18 22:44 78 20 156/87 (110) 91 04/05/18 22:00 84 04/05/18 21:44 82 20 140/78 (98) 92 04/05/18 20:44 98.7 88 25 131/82 (98) 91 04/05/18 20:00 85 04/05/18 19:51 93 Nasal Cannula 3.00 04/05/18 19:15 Nasal Cannula 3.00 04/05/18 19:00 72 15 111/70 (84) 93 I/O 04/05/18 04/05/18 04/05/18 04/06/18 04/06/18 04/06/18 07:00 15:00 23:00 07:00 15:00 23:00 Intake Total 350 ml 720 ml 222 ml 1440 ml Output Total 825 ml 1450 ml 700 ml 550 ml 1950 ml Balance -475 ml -730 ml -700 ml -328 ml -510 ml Intake Oral 720 ml 222 ml 1440 ml IV Total 350 ml Output Urine Total 825 ml 1450 ml 700 ml 550 ml 1950 ml # Bowel Movements 0 1 Result Diagram: 04/05/18 0435 04/05/18 0435 Objective Remarks GENERAL: WBWN WM, NAD SKIN: Warm and dry. HEAD: Normocephalic. EYES: No scleral icterus. No injection or drainage. NECK: Supple, trachea midline. No JVD or lymphadenopathy. CARDIOVASCULAR: Regular rate and rhythm without murmurs, gallops, or rubs. RESPIRATORY: Breath sounds equal bilaterally. No accessory muscle use. Decreased BS at bases GASTROINTESTINAL: Abdomen soft, non-tender, nondistended. MUSCULOSKELETAL: No cyanosis, or edema. Swelling left leg BACK: Nontender without obvious deformity. No CVA tenderness. A/P Assessment and Plan IMPRESSION: Pneumonia Atelactesis Pleural eff, s/p RC COPD Nicotine use Cellulitis left leg PLAN: Cont Abx IV Solumedrol Aerosol nebs Supplement 02 SQ Heparin may need home 02 Will need sleep study as out pt Bedside PFT Sawyer Hernandez MD Apr 06, 2018 18:29
[2018-04-06] MEDS: REMOVE OLD PATCH T-DERMAL SCH (20:12)
[2018-04-06] MEDS: AZITHROMYCIN INJ 500 MG in SODIUM CHLOR 0.9% 250 ML INJ 250 ML IV SCH (23:28)
[2018-04-06] MEDS: cefTRIAXone INJ 1,000 MG in SODIUM CHLORIDE 0.9% INJ 100 ML IV SCH (23:29)
[2018-04-07] VITALS (27 sets, daily range): BP systolic 124–179; BP diastolic 68–98; PULSE 72–106; RESP 11–27; TEMP 97.6–99; O2SAT 76–96
[2018-04-07] MEDS: CHLORHEXIDINE GLUCONATE 2 % 1 PACK (2 CLOTHS)(taper/protocol) TOPICAL SCH (04:00)
[2018-04-07] MEDS: methylPREDNISolone SOD SUCC 40 MG/1 ML VIAL IV PUSH SCH (06:00)
[2018-04-07 06:11] LABS: AUTOMATED NEUTROPHIL # 11.4 TH/MM3 (1.8-7.7); BASOPHIL % 0.2 % (0.0-2.0); HEMATOCRIT 54.3 % (39.0-51.0); HEMOGLOBIN 17.6 GM/DL (13.0-17.0); LYMPHOCYTE # 0.5 TH/MM3 (1.0-4.8); MEAN CORPUSCULAR HEMOGLOBIN 30.1 PG (27.0-34.0); MEAN CORPUSCULAR HGB CONC 32.3 % (32.0-36.0); MEAN PLATELET VOLUME 8.9 FL (7.0-11.0); MONO % 1.9 % (0.0-8.0); MONOCYTE # 0.2 TH/MM3 (0-0.9); NEUT % 93.9 % (16.0-70.0); PLATELET COUNT 172 TH/MM3 (150-450); RED BLOOD COUNT 5.84 MIL/MM3 (4.50-5.90); RED CELL DISTRIBUTION WIDTH 16.8 % (11.6-17.2); WHITE BLOOD COUNT 12.1 TH/MM3 (4.0-11.0)
[2018-04-07 06:27] LABS: BICARBONATE 38.7 MEQ/L (21.0-32.0); CALCIUM 8.6 MG/DL (8.5-10.1); MAGNESIUM 2.5 MG/DL (1.5-2.5)
[2018-04-07 06:31] LABS: CREATININE 0.58 MG/DL (0.60-1.30)
[2018-04-07] MEDS: RESP: ALBUTEROL 2.5 MG/IPRATROPIUM 0.5 MG NEB (SCH) NEB ×3 (07:32→19:19)
[2018-04-07] MEDS: BUDESONIDE-FORMOTEROL 160/4.5 MCG INHALER INH SCH ×2 (08:56→20:56)
[2018-04-07] MEDS: POTASSIUM CHLORIDE 20 MEQ CONTROLLED RELEASE TAB PO SCH (08:56)
[2018-04-07] MEDS: FUROSEMIDE 20 MG TAB PO SCH ×2 (08:56→18:01)
[2018-04-07] MEDS: guaiFENesin E.R. 600 MG TAB PO SCH ×2 (08:57→20:56)
[2018-04-07] MEDS: DOCUSATE SODIUM 50 MG/SENNA 8.6 MG TAB PO SCH ×2 (08:57→20:56)
[2018-04-07] MEDS: HEPARIN SODIUM - SQ 10,000 UNITS/ML VIAL SQ SCH ×2 (08:57→20:56)
[2018-04-07] MEDS: amLODIPine BESYLATE 5 MG TAB PO SCH (08:57)
[2018-04-07] MEDS: SODIUM CHLORIDE 0.9% FLUSH 10 ML FLUSH IV FLUSH SCH ×2 (08:58→20:57)
[2018-04-07] MEDS: NICOTINE 14 MG/24 HR PATCH T-DERMAL SCH (08:59)
--- NOTE | 2018-04-07 10:00 | HHI.PR ---
Subjective Remarks Patient seen and examined today for follow-up on shortness of breath, respiratory failure. Patient resting comfortably on 4 L nasal cannula. Despite thoracentesis patient still with significant hypoxia requiring increased O2 supplementation. Patient denies any shortness of breath or difficulty breathing. Patient remains afebrile. Objective Vitals Vital Signs Date Time Temp Pulse Resp B/P (MAP) Pulse Ox O2 Delivery O2 Flow Rate FiO2 04/07/18 09:01 74 27 91 04/07/18 08:14 97.6 74 18 149/98 (115) 89 04/07/18 08:00 76 04/07/18 07:32 94 Nasal Cannula 4.00 04/07/18 07:00 97.6 78 13 163/96 (118) 91 04/07/18 07:00 96 Nasal Cannula 4.00 04/07/18 06:08 75 04/07/18 06:01 80 12 124/77 (93) 87 04/07/18 05:01 80 12 151/85 (107) 91 04/07/18 04:08 80 04/07/18 04:01 98.2 80 11 143/82 (102) 92 04/07/18 03:01 106 11 179/95 (123) 94 04/07/18 02:01 92 13 150/81 (104) 76 04/07/18 02:00 72 04/07/18 01:01 98 17 169/89 (115) 81 04/07/18 00:08 75 04/07/18 00:01 76 18 158/95 (116) 95 04/06/18 23:01 90 17 169/81 (110) 91 04/06/18 22:01 76 21 137/81 (99) 92 04/06/18 22:00 74 20 140/73 (95) 92 04/06/18 22:00 84 04/06/18 21:00 84 04/06/18 20:01 98.9 78 20 149/73 (98) 96 04/06/18 20:00 85 04/06/18 19:30 94 Nasal Cannula 4.00 04/06/18 19:22 95 Nasal Cannula 4.00 04/06/18 19:01 72 24 149/81 (103) 91 04/06/18 18:01 72 23 140/78 (98) 92 04/06/18 18:00 74 04/06/18 17:01 84 31 161/90 (113) 91 04/06/18 17:00 82 04/06/18 16:03 74 25 151/79 (103) 93 04/06/18 16:01 99.1 76 29 163/95 (117) 95 04/06/18 16:00 80 04/06/18 15:01 74 21 149/80 (103) 95 04/06/18 14:01 76 23 150/75 (100) 96 04/06/18 14:00 70 04/06/18 13:15 88 Nasal Cannula 4.00 04/06/18 13:01 72 13 142/81 (101) 91 04/06/18 13:00 70 04/06/18 12:01 97.6 80 34 153/84 (107) 95 04/06/18 12:00 80 04/06/18 11:01 66 17 150/77 (101) 93 04/06/18 11:00 64 04/06/18 10:13 79 04/06/18 10:12 72 17 137/78 (97) 93 I/O 04/06/18 04/06/18 04/06/18 04/07/18 04/07/18 04/07/18 07:00 15:00 23:00 07:00 15:00 23:00 Intake Total 350 ml 222 ml 1440 ml 350 ml Output Total 700 ml 550 ml 1950 ml 2600 ml Balance -350 ml -328 ml -510 ml -2250 ml Intake Oral 222 ml 1440 ml IV Total 350 ml 350 ml Output Urine Total 700 ml 550 ml 1950 ml 2600 ml # Bowel Movements 1 Result Diagram: 04/07/18 0430 04/07/18 0430 Objective Remarks GENERAL: Well-developed, well-nourished, in no acute distress. alert and orientated HEENT: Head is normocephalic without any lesions or masses noted. Facial features are symmetric. Eyes: Extraocular muscles are intact. Conjunctivae were clear. NECK: Supple without any masses. Trachea midline no deviation. No JVD, CARDIAC: Regular rhythm, regular rate. S1/S2 are heard. No murmurs gallops or rubs. LUNGS: S diminished breath sounds noted bilaterally. No wheeze, rhonchi or rales. No use of accessory muscles on inspiration or expiration. ABDOMEN: Soft, nontender. Nondistended. Bowel sounds heard in all 4 quadrants. No organomegaly or masses. Negative rebound, negative guarding EXTREMITIES: 2+ edema noted in the left lower extremity. Right lower extremity with 1+ edema., pulses are equal bilaterally. No cyanosis or clubbing NEUROLOGY: Mood and affect appear appropriate. Cranial nerves II through XII grossly intact. Moving all extremities, speech is clear Urinary Catheter: No Vascular Central Line Catheter: No A/P Assessment and Plan Acute hypoxic respiratory failure -Multifactorial with patient having significant left-sided pleural effusion of unknown etiology, community acquired pneumonia, chronic objective pulmonary disease -Interventional radiology performed thoracentesis with removal of 1200 cc of yellow/clear fluid -Pleural fluid does have increased WBCs and RBCs, however LDH and total protein indicating transudative fluid -Inspecting Engineer consulted for recommendations -Continue O2 supplementation maintain O2 sats greater than 92%, BiPAP as needed -Patient continued on Rocephin and Zithromax for pneumonia treatment, convert to p.o. antibiotics -Continue duo nebs every 6 hours while awake and every 2 hours as needed -Continue Solu-Medrol 40 mg every 6 hours, changed to p.o. prednisone -Continue Symbicort 2 puffs every 12 hours -Continue Mucinex -Echocardiogram indicates normal left ventricular function and ejection fraction 65-70%. Mild aortic valve stenosis. -Continue Lasix 20 mg p.o. twice daily with KCl 20 mg daily -Continue Acapella and incentive spirometry -Awaiting bedside pulmonary function study -Obtain home oxygen walk study Left lower extremity cellulitis, failed outpatient antibiotic therapy of Keflex and Bactrim, improving -Left lower extremity negative for DVT. -Control pain, [place] available as needed for pain scale. -Encourage elevation. Hypertension: -Increase to amlodipine 10 mg daily -ERICA inhibitor on hold due to cough Tobacco abuse: -Counseled patient on cessation -Nicotine patch DVT prophylaxis: -Subcutaneous heparin. Discharge Planning Discharge planning 24-48 hours depending on response to therapy and the ability to wean off oxygen Jamshid Lieberman Apr 07, 2018 10:00
[2018-04-07] MEDS: LEVOFLOXACIN 750 MG TAB PO SCH (11:00)
[2018-04-07] MEDS: predniSONE 20 MG TAB PO SCH ×2 (11:00→20:56)
[2018-04-07 15:52] LABS: AMYLASE BODY FLUID 33 U/L; AMYLASE BODY FLUID TYPE PLEURAL
--- NOTE | 2018-04-07 16:07 | HHI.PR ---
Subjective Remarks ALERT NO DISTRESS SITTING IN BED ON O2 NC Objective Vital Signs Date Time Temp Pulse Resp B/P (MAP) Pulse Ox O2 Delivery O2 Flow Rate FiO2 04/07/18 15:01 84 21 140/71 (94) 96 04/07/18 14:01 76 25 138/77 (97) 94 04/07/18 13:00 82 20 144/78 (100) 94 04/07/18 12:00 82 04/07/18 12:00 97.8 80 26 147/81 (103) 96 04/07/18 11:00 74 25 128/78 (95) 95 04/07/18 10:00 76 26 144/86 (105) 96 04/07/18 10:00 80 04/07/18 09:01 74 27 91 04/07/18 09:00 74 27 152/86 (108) 91 04/07/18 08:14 97.6 74 18 149/98 (115) 89 04/07/18 08:00 76 04/07/18 07:32 94 Nasal Cannula 4.00 04/07/18 07:00 97.6 78 13 163/96 (118) 91 04/07/18 07:00 96 Nasal Cannula 4.00 04/07/18 06:08 75 04/07/18 06:01 80 12 124/77 (93) 87 04/07/18 05:01 80 12 151/85 (107) 91 04/07/18 04:08 80 04/07/18 04:01 98.2 80 11 143/82 (102) 92 04/07/18 03:01 106 11 179/95 (123) 94 04/07/18 02:01 92 13 150/81 (104) 76 04/07/18 02:00 72 04/07/18 01:01 98 17 169/89 (115) 81 04/07/18 00:08 75 04/07/18 00:01 76 18 158/95 (116) 95 04/06/18 23:01 90 17 169/81 (110) 91 04/06/18 22:01 76 21 137/81 (99) 92 04/06/18 22:00 74 20 140/73 (95) 92 04/06/18 22:00 84 04/06/18 21:00 84 04/06/18 20:01 98.9 78 20 149/73 (98) 96 04/06/18 20:00 85 04/06/18 19:30 94 Nasal Cannula 4.00 04/06/18 19:22 95 Nasal Cannula 4.00 04/06/18 19:01 72 24 149/81 (103) 91 04/06/18 18:01 72 23 140/78 (98) 92 04/06/18 18:00 74 04/06/18 17:01 84 31 161/90 (113) 91 04/06/18 17:00 82 I/O 04/06/18 04/06/18 04/06/18 04/07/18 04/07/18 04/07/18 07:00 15:00 23:00 07:00 15:00 23:00 Intake Total 350 ml 222 ml 1440 ml 350 ml 960 ml Output Total 700 ml 550 ml 1950 ml 2600 ml 1150 ml Balance -350 ml -328 ml -510 ml -2250 ml -190 ml Intake Oral 222 ml 1440 ml 960 ml IV Total 350 ml 350 ml Output Urine Total 700 ml 550 ml 1950 ml 2600 ml 1150 ml # Bowel Movements 1 0 Result Diagram: 04/07/18 0430 04/07/18 0430 Objective Remarks Vital Signs Date Time Temp Pulse Resp B/P (MAP) Pulse Ox O2 Delivery O2 Flow Rate FiO2 04/07/18 15:01 84 21 140/71 (94) 96 04/07/18 14:01 76 25 138/77 (97) 94 04/07/18 13:00 82 20 144/78 (100) 94 04/07/18 12:00 82 04/07/18 12:00 97.8 80 26 147/81 (103) 96 04/07/18 11:00 74 25 128/78 (95) 95 04/07/18 10:00 76 26 144/86 (105) 96 04/07/18 10:00 80 04/07/18 09:01 74 27 91 04/07/18 09:00 74 27 152/86 (108) 91 04/07/18 08:14 97.6 74 18 149/98 (115) 89 04/07/18 08:00 76 04/07/18 07:32 94 Nasal Cannula 4.00 04/07/18 07:00 97.6 78 13 163/96 (118) 91 04/07/18 07:00 96 Nasal Cannula 4.00 04/07/18 06:08 75 04/07/18 06:01 80 12 124/77 (93) 87 04/07/18 05:01 80 12 151/85 (107) 91 04/07/18 04:08 80 04/07/18 04:01 98.2 80 11 143/82 (102) 92 04/07/18 03:01 106 11 179/95 (123) 94 04/07/18 02:01 92 13 150/81 (104) 76 04/07/18 02:00 72 04/07/18 01:01 98 17 169/89 (115) 81 04/07/18 00:08 75 04/07/18 00:01 76 18 158/95 (116) 95 04/06/18 23:01 90 17 169/81 (110) 91 04/06/18 22:01 76 21 137/81 (99) 92 04/06/18 22:00 74 20 140/73 (95) 92 04/06/18 22:00 84 04/06/18 21:00 84 04/06/18 20:01 98.9 78 20 149/73 (98) 96 04/06/18 20:00 85 04/06/18 19:30 94 Nasal Cannula 4.00 04/06/18 19:22 95 Nasal Cannula 4.00 04/06/18 19:01 72 24 149/81 (103) 91 04/06/18 18:01 72 23 140/78 (98) 92 04/06/18 18:00 74 04/06/18 17:01 84 31 161/90 (113) 91 04/06/18 17:00 82 Assessment and Plan Assessment and Plan IMPRESSION RESPIRAORY FAILURE COPD PLAN O2 BRONCHODILATOR THERAPY INCREASE ACTIVITY Discharge Planning GENERAL: SKIN: Warm and dry. HEAD: Atraumatic. Normocephalic. EYES: Pupils equal and round. No scleral icterus. No injection or drainage. ENT: No nasal bleeding or discharge. Mucous membranes pink and moist. NECK: Trachea midline. No JVD. CARDIOVASCULAR: Regular rate and rhythm. RESPIRATORY: No accessory muscle use. Clear to auscultation. Breath sounds equal bilaterally. GASTROINTESTINAL: Abdomen soft, non-tender, nondistended. Hepatic and splenic margins not palpable. MUSCULOSKELETAL: Extremities without clubbing, cyanosis, or edema. No obvious deformities. NEUROLOGICAL: Awake and alert. No obvious cranial nerve deficits. Motor grossly within normal limits. Five out of 5 muscle strength in the arms and legs. Normal speech. PSYCHIATRIC: Appropriate mood and affect; insight and judgment normal. Margo Aragon MD Apr 07, 2018 16:07
[2018-04-07] MEDS: REMOVE OLD PATCH T-DERMAL SCH (20:57)
[2018-04-08] VITALS (9 sets, daily range): BP systolic 145–179; BP diastolic 74–97; PULSE 68–88; RESP 18–35; TEMP 97.6–98.3; O2SAT 92–96
[2018-04-08] MEDS: CHLORHEXIDINE GLUCONATE 2 % 1 PACK (2 CLOTHS)(taper/protocol) TOPICAL SCH (04:00)
--- NOTE | 2018-04-08 06:49 | RADRPT ---
EXAM DATE: 04/08/2018 6:17 AM EDT AGE/SEX: 58 years / Male INDICATIONS: Shortness of breath CLINICAL DATA: This is the patient's subsequent encounter. Patient reports that signs and symptoms h ave been present for 4 - 6 days and indicates a pain score of 0/10. MEDICAL/SURGICAL HISTORY: . Hypertension. Chronic obstructive pulmonary disease. Smoker None. COMPARISON: HPO, CHEST SINGLE AP, 04/06/2018. . FINDINGS: Compare April 06. There is a left-sided pleural effusion which is stable to slightly increased from Apr. There is also mild basilar airspace disease which may represent atelectasis. Trace right pleural fluid. No pneumothorax. CONCLUSION: Left-sided pleural effusion, stable to increased from April 06 with basilar airspace disease. Electronically signed by: Chris Calzada MD 04/08/2018 6:47 AM EDT
[2018-04-08] MEDS: RESP: ALBUTEROL 2.5 MG/IPRATROPIUM 0.5 MG NEB (SCH) NEB ×3 (07:59→19:41)
[2018-04-08] MEDS: HEPARIN SODIUM - SQ 10,000 UNITS/ML VIAL SQ SCH ×2 (09:15→14:35)
[2018-04-08] MEDS: predniSONE 20 MG TAB PO SCH ×2 (09:16→20:49)
[2018-04-08] MEDS: guaiFENesin E.R. 600 MG TAB PO SCH ×2 (09:16→20:50)
[2018-04-08] MEDS: DOCUSATE SODIUM 50 MG/SENNA 8.6 MG TAB PO SCH ×2 (09:17→20:50)
[2018-04-08] MEDS: SODIUM CHLORIDE 0.9% FLUSH 10 ML FLUSH IV FLUSH SCH ×2 (09:18→20:49)
[2018-04-08] MEDS: BUDESONIDE-FORMOTEROL 160/4.5 MCG INHALER INH SCH ×3 (09:18→21:00)
[2018-04-08] MEDS: POTASSIUM CHLORIDE 20 MEQ CONTROLLED RELEASE TAB PO SCH ×2 (09:18→20:50)
[2018-04-08] MEDS: FUROSEMIDE 20 MG TAB PO SCH ×2 (09:18→17:42)
[2018-04-08] MEDS: NICOTINE 14 MG/24 HR PATCH T-DERMAL SCH (09:19)
--- NOTE | 2018-04-08 10:39 | HHI.PR ---
Subjective Remarks 58-year-old male who is seen today in follow-up for respiratory failure. Patient states that he is breathing well. Denies any shortness of breath or dyspnea. However, patient has not had any significant improvement with his oxygen saturation. Patient remains afebrile. Objective Vitals Vital Signs Date Time Temp Pulse Resp B/P (MAP) Pulse Ox O2 Delivery O2 Flow Rate FiO2 04/08/18 08:00 96 Nasal Cannula 4.00 04/08/18 04:00 98.0 88 20 172/88 (116) 96 04/08/18 04:00 88 04/08/18 00:00 80 04/08/18 00:00 97.7 82 22 145/74 (97) 93 04/07/18 20:00 98.5 80 22 146/82 (103) 93 04/07/18 20:00 87 04/07/18 19:20 95 Nasal Cannula 4.00 04/07/18 19:00 92 Nasal Cannula 4.00 04/07/18 16:41 80 04/07/18 16:01 99.0 78 23 126/68 (87) 96 04/07/18 15:01 84 21 140/71 (94) 96 04/07/18 14:01 76 25 138/77 (97) 94 04/07/18 13:00 82 20 144/78 (100) 94 04/07/18 12:00 82 04/07/18 12:00 97.8 80 26 147/81 (103) 96 04/07/18 11:00 74 25 128/78 (95) 95 I/O 04/07/18 04/07/18 04/07/18 04/08/18 04/08/18 04/08/18 07:00 15:00 23:00 07:00 15:00 23:00 Intake Total 350 ml 960 ml 400 ml 240 ml Output Total 2600 ml 1150 ml 350 ml 2200 ml Balance -2250 ml -190 ml 50 ml -1960 ml Intake Oral 960 ml 400 ml 240 ml IV Total 350 ml Output Urine Total 2600 ml 1150 ml 350 ml 2200 ml # Voids 1 # Bowel Movements 0 0 0 Result Diagram: 04/07/18 0430 04/07/18 043 Objective Remarks GENERAL: Well-developed, well-nourished, in no acute distress. alert and orientated HEENT: Head is normocephalic without any lesions or masses noted. Facial features are symmetric. Eyes: Extraocular muscles are intact. Conjunctivae were clear. NECK: Supple without any masses. Trachea midline no deviation. No JVD, CARDIAC: Regular rhythm, regular rate. S1/S2 are heard. No murmurs gallops or rubs. LUNGS: S diminished breath sounds noted bilaterally. No wheeze, rhonchi or rales. No use of accessory muscles on inspiration or expiration. ABDOMEN: Soft, nontender. Nondistended. Bowel sounds heard in all 4 quadrants. No organomegaly or masses. Negative rebound, negative guarding EXTREMITIES: 1+ edema noted in the left lower extremity. Right lower extremity without any edema., pulses are equal bilaterally. No cyanosis or clubbing NEUROLOGY: Mood and affect appear appropriate. Cranial nerves II through XII grossly intact. Moving all extremities, speech is clear Urinary Catheter: No Vascular Central Line Catheter: No A/P Assessment and Plan Acute hypoxic respiratory failure -Multifactorial with patient having significant left-sided pleural effusion of unknown etiology, community acquired pneumonia, chronic objective pulmonary disease -Interventional radiology performed thoracentesis with removal of 1200 cc of yellow/clear fluid -Pleural fluid does have increased WBCs and RBCs, however LDH and total protein indicating transudative fluid -[employer] consulted for recommendations -Continue O2 supplementation maintain O2 sats greater than 92%, BiPAP as needed -Levaquin 750 mg p.o. daily -Continue duo nebs every 6 hours while awake and every 2 hours as needed -Prednisone 40 mg every 12 hours -Continue Symbicort 2 puffs every 12 hours -Continue Mucinex -Echocardiogram indicates normal left ventricular function and ejection fraction 65-70%. Mild aortic valve stenosis. -Increase to Lasix 40 mg p.o. twice daily with KCl 20 mEq twice daily -Continue Acapella and incentive spirometry -Awaiting bedside pulmonary function study -Obtain home oxygen walk study, patient will require oxygen upon discharge -Follow-up checks x-ray does indicate enlargement of the pleural effusion. Will obtain chest ultrasound to evaluate if patient would benefit from another thoracentesis Left lower extremity cellulitis, failed outpatient antibiotic therapy of Keflex and Bactrim, improving -Left lower extremity negative for DVT. -Control pain, [place] available as needed for pain scale. -Encourage elevation. Hypertension: Blood pressure mildly elevated today. -Amlodipine 10 mg daily -Lasix 40 mg p.o. twice daily -ERICA inhibitor on hold due to cough -Clonidine as needed Tobacco abuse: -Counseled patient on cessation -Nicotine patch DVT prophylaxis: -Subcutaneous heparin. Discharge Planning Discharge planning 24-48 hours depending on response to therapy and the ability to wean off oxygen Jamshid Lieberman Apr 08, 2018 10:39
[2018-04-08] MEDS ORDERED: cloNIDine HCL 0.1 MG TAB PO PRN (11:00)
--- NOTE | 2018-04-08 14:39 | RADRPT ---
EXAM DATE: 04/08/2018 2:17 PM EDT AGE/SEX: 58 years / Male INDICATIONS: Left pleural effusion. CLINICAL DATA: This is the patient's subsequent encounter. Patient reports that signs and symptoms h ave been present for 2 days and indicates a pain score of 0/10. MEDICAL/SURGICAL HISTORY: Hypertension. Chronic obstructive pulmonary disease. . Right knee ar throscopy. COMPARISON: HPO, US CHEST LEFT, 04/05/2018. . MEASUREMENTS: Skin To Parietal Pleura:__2.6 cm Skin To Max Safe Depth:__4.4 cm Estimated Fluid Volume:__315 cc Fluid Composition:__simple FINDINGS: Pleural effusion as above. CONCLUSION: 1. Small left pleural effusion. Electronically signed by: Ran Guardado MD 04/08/2018 2:31 PM EDT
[2018-04-08] MEDS ORDERED: OXYGENDME NAS.CANULA (15:01)
--- NOTE | 2018-04-08 18:00 | HHI.PR ---
Subjective Remarks 58 YOWM with Nicotine use, swelling left leg, Pn Breathing better No fever Ambulates Up in chair Objective Vital Signs Vital Signs Date Time Temp Pulse Resp B/P (MAP) Pulse Ox O2 Delivery O2 Flow Rate FiO2 04/08/18 15:35 98.2 72 18 167/81 (109) 95 04/08/18 14:21 94 Nasal Cannula 2.00 04/08/18 14:21 2.00 04/08/18 11:48 97.6 68 18 179/85 (116) 96 04/08/18 10:05 94 Nasal Cannula 4.00 04/08/18 10:00 76 04/08/18 08:00 90 Nasal Cannula 2.00 04/08/18 08:00 96 Nasal Cannula 4.00 04/08/18 08:00 98.3 70 35 168/97 (120) 96 04/08/18 08:00 70 04/08/18 07:00 95 Nasal Cannula 4.00 04/08/18 04:00 98.0 88 20 172/88 (116) 96 04/08/18 04:00 88 04/08/18 00:00 80 04/08/18 00:00 97.7 82 22 145/74 (97) 93 04/07/18 20:00 98.5 80 22 146/82 (103) 93 04/07/18 20:00 87 04/07/18 19:20 95 Nasal Cannula 4.00 04/07/18 19:00 92 Nasal Cannula 4.00 I/O 04/07/18 04/07/18 04/07/18 04/08/18 04/08/18 04/08/18 07:00 15:00 23:00 07:00 15:00 23:00 Intake Total 350 ml 960 ml 400 ml 240 ml 480 ml Output Total 2600 ml 1150 ml 350 ml 2200 ml 1100 ml Balance -2250 ml -190 ml 50 ml -1960 ml -620 ml Intake Oral 960 ml 400 ml 240 ml 480 ml IV Total 350 ml Output Urine Total 2600 ml 1150 ml 350 ml 2200 ml 1100 ml # Voids 1 # Bowel Movements 0 0 0 0 Result Diagram: 04/07/18 0430 04/07/18 043 Objective Remarks GENERAL: WBWN WM, NAD SKIN: Warm and dry. HEAD: Normocephalic. EYES: No scleral icterus. No injection or drainage. NECK: Supple, trachea midline. No JVD or lymphadenopathy. CARDIOVASCULAR: Regular rate and rhythm without murmurs, gallops, or rubs. RESPIRATORY: Breath sounds equal bilaterally. No accessory muscle use. Decreased BS at bases GASTROINTESTINAL: Abdomen soft, non-tender, nondistended. MUSCULOSKELETAL: No cyanosis, or edema. Swelling left leg BACK: Nontender without obvious deformity. No CVA tenderness. A/P Assessment and Plan IMPRESSION: Pneumonia Atelactesis Pleural eff, s/p RC COPD Nicotine use Cellulitis left leg PLAN: Cont Abx DC Solumedrol PO Steroids Aerosol nebs Supplement 02 SQ Heparin may need home 02 DC plans for home Available prn over weekend Sawyer Hernandez MD Apr 08, 2018 18:00
[2018-04-08] MEDS: LEVOFLOXACIN 750 MG TAB PO SCH (20:51)
[2018-04-08] MEDS: REMOVE OLD PATCH T-DERMAL SCH (20:51)
[2018-04-09] VITALS: BP 184/89; PULSE 84; RESP 18; TEMP 96.2; O2SAT 92
[2018-04-09] MEDS: CHLORHEXIDINE GLUCONATE 2 % 1 PACK (2 CLOTHS)(taper/protocol) TOPICAL SCH (03:03)
[2018-04-09 06:41] LABS: AUTOMATED NEUTROPHIL # 7.5 TH/MM3 (1.8-7.7); BASOPHIL % 0.5 % (0.0-2.0); EOSINOPHIL % 0.1 % (0.0-4.0); HEMATOCRIT 54.5 % (39.0-51.0); HEMOGLOBIN 18.2 GM/DL (13.0-17.0); LYMPH % 4.7 % (9.0-44.0); LYMPHOCYTE # 0.4 TH/MM3 (1.0-4.8); MEAN CELL VOLUME 91.9 FL (80.0-100.0); MEAN CORPUSCULAR HEMOGLOBIN 30.7 PG (27.0-34.0); MEAN CORPUSCULAR HGB CONC 33.4 % (32.0-36.0); MONOCYTE # 0.4 TH/MM3 (0-0.9); NEUT % 89.7 % (16.0-70.0); PLATELET COUNT 155 TH/MM3 (150-450); RED BLOOD COUNT 5.92 MIL/MM3 (4.50-5.90); RED CELL DISTRIBUTION WIDTH 16.6 % (11.6-17.2); WHITE BLOOD COUNT 8.3 TH/MM3 (4.0-11.0)
--- NOTE | 2018-04-09 06:43 | RADRPT ---
EXAM DATE: 04/09/2018 6:23 AM EDT AGE/SEX: 58 years / Male INDICATIONS: Shortness of breath. CLINICAL DATA: This is the patient's subsequent encounter. Patient reports that signs and symptoms h ave been present for 1 week and indicates a pain score of 0/10. MEDICAL/SURGICAL HISTORY: . Hypertension. Chronic obstructive pulmonary disease . Right knee a rthroscopy COMPARISON: HPO, CHEST PA & LAT, 04/08/2018. . FINDINGS: Small pleural effusions noted, improved on the left since April 08. Mild basilar density most character istic of atelectasis. Heart size upper limits normal. No pneumothorax. CONCLUSION: Small pleural effusions, improved on the left since April 08. Mild basilar airspace disease. Electronically signed by: Chris Calzada MD 04/09/2018 6:42 AM EDT
[2018-04-09 06:49] LABS: CALCIUM 8.6 MG/DL (8.5-10.1)
[2018-04-09 06:50] LABS: BICARBONATE 39.3 MEQ/L (21.0-32.0); MAGNESIUM 2.4 MG/DL (1.5-2.5)
[2018-04-09 06:53] LABS: CREATININE 0.69 MG/DL (0.60-1.30)
[2018-04-09] MEDS: RESP: ALBUTEROL 2.5 MG/IPRATROPIUM 0.5 MG NEB (SCH) NEB (07:08)
[2018-04-09 07:28] VITALS: BP 138/85; PULSE 63; RESP 20; TEMP 96.8; O2SAT 92
[2018-04-09 07:32] VITALS: O2SAT 95
[2018-04-09] MEDS: FUROSEMIDE 20 MG TAB PO SCH (08:00)
[2018-04-09] MEDS: guaiFENesin E.R. 600 MG TAB PO SCH (08:00)
[2018-04-09] MEDS: DOCUSATE SODIUM 50 MG/SENNA 8.6 MG TAB PO SCH (08:00)
[2018-04-09] MEDS: POTASSIUM CHLORIDE 20 MEQ CONTROLLED RELEASE TAB PO SCH (08:01)
[2018-04-09] MEDS: predniSONE 20 MG TAB PO SCH (08:01)
[2018-04-09] MEDS: NICOTINE 14 MG/24 HR PATCH T-DERMAL SCH (08:03)
[2018-04-09] MEDS: HEPARIN SODIUM - SQ 10,000 UNITS/ML VIAL SQ SCH (08:03)
[2018-04-09] MEDS: SODIUM CHLORIDE 0.9% FLUSH 10 ML FLUSH IV FLUSH SCH (08:04)
[2018-04-09] MEDS: BUDESONIDE-FORMOTEROL 160/4.5 MCG INHALER INH SCH (08:10)
--- NOTE | 2018-04-09 08:38 | HHI.DCPOC ---
Discharge Care Plan Diagnosis: (1) Pleural effusion on left (2) Pneumonia (3) Hypoxia (4) COPD with exacerbation (5) Cellulitis Goals to Promote Your Health * To prevent worsening of your condition and complications * To maintain your health at the optimal level Directions to Meet Your Goals Take your medications as prescribed Follow your dietary instruction Follow activity as directed Keep your appointments as scheduled Take your immunizations and boosters as scheduled If your symptoms worsen call your PCP, if no PCP go to Urgent Care Center or Emergency Room Smoking is Dangerous to Your Health. Avoid second hand smoke Call the 24-hour hour crisis hotline for domestic abuse at Jamshid Lieberman Apr 09, 2018 08:38
[2018-04-09] MEDS ORDERED: Budeson-Formot 160-4.5 Mcg Inh INH (08:45)
[2018-04-09] MEDS ORDERED: AMLO10 PO (08:45)
[2018-04-09] MEDS ORDERED: NEBULIZER1 MI1 (08:45)
[2018-04-09] MEDS ORDERED: LEVA750T9 PO (08:45)
[2018-04-09] MEDS ORDERED: Albuterol-Ipratropium Neb NEB (08:45)
[2018-04-09] MEDS ORDERED: FURO1TAB60 PO (08:45)
[2018-04-09] MEDS ORDERED: MEDR4PAK PO (08:45)
[2018-04-09] MEDS ORDERED: POTA20TA5 PO (08:45)
[2018-04-09] MEDS: LEVOFLOXACIN 750 MG TAB PO SCH (10:45)
[2018-04-09 11:11] VITALS: BP 142/80; PULSE 65; RESP 20; TEMP 96.6; O2SAT 92
--- NOTE | 2018-04-09 11:24 | HHI.DS ---
Discharge Summary Admission Date Apr 04, 2018 at 02:10 Discharge Date: Apr 09, 2018 Admitting Diagnosis Pneumonia w/ moderate effusion; COPD; LLE cellulitis (1) Pneumonia ICD Code: J18.9 - Pneumonia, unspecified organism Status: Acute (2) Pleural effusion on left ICD Code: J90 - Pleural effusion, not elsewhere classified Status: Acute (3) COPD with exacerbation ICD Code: J44.1 - Chronic obstructive pulmonary disease with (acute) exacerbation Status: Acute (4) Hypoxia ICD Code: R09.02 - Hypoxemia Status: Acute (5) Cellulitis ICD Code: L03.90 - Cellulitis, unspecified Status: Acute Procedures Thoracentesis Brief History - From Admission This is a pleasant 58-year-old male patient with a known medical history of COPD , tobacco abuse as well as new diagnosis of hypertension who presented to the ED with complaints of worsening shortness of breath as well as left lower extremity swelling, redness and warmth. Patient states he presented to the ED on 02/28/18 for left lower extremity complaints. At that time patient was given Bactrim and Keflex. Patient states he completed this course of antibiotics roughly 4 days ago with no improvement but actually worsening pain and erythema to his left lower. Patient states that the pain in his leg is localized, worse with activity or movement. Rated a 9 out of 10 at its worst on pain scale. 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 Patient does admit to increasing shortness of breath especially with exertion. States that while he was in the ED last month he was prescribed lisinopril for the first time for new diagnosis of hypertension. Patient states that since this time he has developed a nonproductive cough. Denies any recent fevers, chills, headache, abdominal pain, nausea, vomiting, diarrhea or dysuria. Does not follow with the PCP. Due to his diagnosis of pneumonia with shortness of breath and cough, it is questionable whether the cough is secondary to ERICA inhibitor use. CBC/BMP: 04/09/18 0535 04/09/18 0535 Significant Findings Laboratory Tests Test 04/07/18 04:30 04/09/18 05:35 White Blood Count 12.1 TH/MM3 (4.0-11.0) Hemoglobin 17.6 GM/DL (13.0-17.0) 18.2 GM/DL (13.0-17.0) Hematocrit 54.3 % (39.0-51.0) 54.5 % (39.0-51.0) Neutrophils (%) (Auto) 93.9 % (16.0-70.0) 89.7 % (16.0-70.0) Lymphocytes (%) (Auto) 4.0 % (9.0-44.0) 4.7 % (9.0-44.0) Neutrophils # (Auto) 11.4 TH/MM3 (1.8-7.7) Lymphocytes # (Auto) 0.5 TH/MM3 (1.0-4.8) 0.4 TH/MM3 (1.0-4.8) Creatinine 0.58 MG/DL (0.60-1.30) Random Glucose 134 MG/DL (74-106) 149 MG/DL (74-106) Carbon Dioxide Level 38.7 MEQ/L (21.0-32.0) 39.3 MEQ/L (21.0-32.0) Red Blood Count 5.92 MIL/MM3 (4.50-5.90) Chloride Level 96 MEQ/L (98-107) Anion Gap 4 MEQ/L (5-15) Imaging Last Impressions Chest X-Ray 04/09/18 0600 Signed Impressions: CONCLUSION: Small pleural effusions, improved on the left since April 08. Mild basilar airspa ce disease. Chest Ultrasound 04/08/18 Signed Impressions: CONCLUSION: 1. Small left pleural effusion. Thoracentesis Ultrasound 04/05/18 Signed Impressions: CONCLUSION: 1. Uncomplicated left thoracentesis. Sample of fluid sent to the lab as reques daylin. Lower Extremity Ultrasound 04/05/18 Signed Impressions: CONCLUSION: 1. The study is negative for bilateral lower extremity deep venous thrombosis. CT Angiography 04/04/18 Signed Impressions: CONCLUSION: 1. No evidence of pulmonary embolism. 2. Moderate left pleural effusion with compressive atelectasis of the left low er lung. 3. Parenchymal infiltrate in the left upper lung. 4. Atelectasis in the right lower lung. PE at Discharge GENERAL: sitting up in bed CARDIAC: Regular rhythm, regular rate. No murmurs LUNGS: diminished breath sounds noted bilaterally. No wheeze. No use of accessory muscles on inspiration or expiration. ABDOMEN: Soft, nontender. Nondistended. EXTREMITIES:moves extremities and no difficulty ambulating Pt update on day of discharge Pt feeling well. SOB much improved. No chest pain, no nausea or vomiting. Eager to go home today and go fishing. Hospital Course Pt was admitted for Acute hypoxic respiratory failure secondary to pleural effusion of unknown etiology. s/p thoracentesis w removal of 1200cc yellow/ clear fluid. Pleural fluid does have increased WBCs and RBCs, however LDH and total protein indicating transudative fluid. Pulmonology team evaluated the patient and followed him while in the hospital. pt was started on IV steroids and IV abx. He was transitioned to po steroids and switched to po levaquin. Pt failed the walk test and home oxygen was ordered and set up. Pt received breathing treatments and a nebulizer was ordered. Continue Symbicort 2 puffs every 12 hours. Echocardiogram indicates normal left ventricular function and ejection fraction 65-70%. Mild aortic valve stenosis. He was also started on diuretics and will be discharged donaldo on Lasix 40 mg daily with KCl 20 mEq daily Left lower extremity cellulitis, failed outpatient antibiotic therapy of Keflex and Bactrim, much improved. on levaquin Hypertension: -Amlodipine 10 mg daily -Lasix 40 mg p.o. twice daily -ERICA inhibitor on hold due to cough -Clonidine as needed Tobacco abuse: -Counseled patient on cessation -Nicotine patch Pt Condition on Discharge: Stable Discharge Disposition: Discharge Home Discharge Time: > 30 minutes Discharge Instructions DIET: Follow Instructions for: Heart Healthy Diet Activities you can perform: Regular-No Restrictions Follow up Referrals: PCP Follow-up - 1 Week Pulmonology - 1 Week with Sawyer Hernandez MD New Medications: Furosemide (Lasix) 40 Mg Tab 40 MG PO DAILY for Blood Pressure Management, #30 TAB 0 Refills Methylprednisolone Dosepak (Medrol Dosepak) 4 Mg Dspk 4 MG PO DIRECTED, #1 DSPK 0 Refills Per Pharmacist direction Nebulizer (Nebulizer) 1 Mis Mis EA .XX DIRECTED for Breathing Treatment, #1 0 Refills Oxygen (O2) (Oxygen (O2)) Device LITER IRMA.CANULA CONTINUOUS for Prevent Hypoxemia, #2 Oxygen Concentrator Portable Gaseous 2 L/min via Nasal Canula Continuous For 99 months Amlodipine (Norvasc) 10 Mg Tab 10 MG PO DAILY for Blood Pressure Management, #30 TAB Levofloxacin (Levaquin) 750 Mg Tablet 750 MG PO DAILY@1100 for Infection for 7 Days, TAB Potassium Chloride Microencaps (Potassium Chloride Microencaps) 20 Meq Tab 20 MEQ PO DAILY for electrolyte replacement for 30 Days, #30 TAB [Albuterol-Ipratropium Neb] () 1 AMPULE NEBU 1 AMPULE NEB Q6HR WHILE AWAKE NEB for Breathing Treatment for 30 Days, AMPULE [Budeson-Formot 160-4.5 Mcg Inh] () 60 PUFF AERO 2 PUFF INH Q12HR for inh for 30 Days Discontinued Medications: Lisinopril (Lisinopril) 20 Mg Tab 20 MG PO DAILY, #30 TAB 0 Refills Keeley Ventura MD Apr 09, 2018 11:24
== END 2018-04-09 11:33 | disposition home or self-care (01) | DRG 193 ==
LOC: PHED 18:03 → PHEDA 04-04 02:10 → PH3A 04-04 03:18 → PHICU 04-04 13:00 → PH3A 04-08 11:12
PROVIDERS: ADMIT Hospitalist; ATTEND Hospitalist
PROC: 5A09457 Assistance with Respiratory Ventilation, 24-96 Consecutive Hours, Continuous Positive Airway Pressure (ICD-10-PCS; 2018-04-03)
PROC: 0W9B3ZX Drainage of Left Pleural Cavity, Percutaneous Approach, Diagnostic (ICD-10-PCS; principal; 2018-04-05)
DX: J18.9 Pneumonia, unspecified organism (principal); J96.01 Acute respiratory failure with hypoxia; J44.0 Chronic obstructive pulmonary disease with (acute) lower respiratory infection; J90 Pleural effusion, not elsewhere classified; L03.116 Cellulitis of left lower limb; J98.11 Atelectasis; L03.115 Cellulitis of right lower limb; J44.1 Chronic obstructive pulmonary disease with (acute) exacerbation; I10 Essential (primary) hypertension; I35.0 Nonrheumatic aortic (valve) stenosis; F12.90 Cannabis use, unspecified, uncomplicated; F17.210 Nicotine dependence, cigarettes, uncomplicated; Z23 Encounter for immunization
CPT/HCPCS: 32555; 36600; 71045; 71046; 71275; 76604; 80048; 80053; 82150; 82805; 82945; 83605; 83615; 83735; 83880; 84157; 85025; 85610; 85730; 87015; 87040; 87070; 87102; 87116; 87205; 87206; 87641; 88112; 88305; 89051; 90471; 90732; 93306; 93970; 93971; 94002; 94003; 94060; 94150; 94618; 94640; 94664; 94667; 94668; 96365; 96375; C1729; G0009; J0456; J0696; J1644; J1940; J2543; J2920; J2930; J7050; J7512; Q9967